=== PATIENT | female | born 1955 | race Caucasian/White ===

== ENCOUNTER 2016-08-16 19:57 | Emergency (ER) | payer MEDICARE ==
[2016-08-16 20:05] VITALS: BP 134/79
--- NOTE | 2016-08-16 20:34 | UC ---
Abdominal Pain Female HPI - HPI Summary HPI Summary: 5.5 x 2.5 inch erythema with 0.5 by 1 inch purulent area with drainage left lower abdomen for 2 days - History of Current Complaint Chief Complaint: UCSkin Stated Complaint: BURST ABCESS ON ABD Time Seen by Provider: 08/16/16 20:30 Hx Obtained From: Patient ?: No Onset/Duration: Sudden Onset, Lasting Days - 2, Still Present Timing: Constant Severity Initially: Moderate Severity Currently: Moderate Pain Intensity: 7 Pain Scale Used: 0-10 Numeric Location: Discrete At: LLQ Radiates: No Character: Not Applicable Aggravating Factor(s): Other: - clothing rubbing on site Alleviating Factor(s): Nothing Associated Signs and Symptoms: Positive: Negative Allergies/Adverse Reactions: Allergies Allergy/AdvReac Type Severity Reaction Status Date / Time Amoxicillin Allergy Intermediate Hives Verified 10/04/14 17:14 Doxycycline Allergy Intermediate Hives Verified 10/04/14 17:14 Erythromycin Allergy Intermediate Hives Verified 10/04/14 17:14 Home Medications: Home Medications Dulaglutide [Trulicity] 0.75 mg SC 08/16/16 [History] Insulin Lispro [Humalog] 10 unit SC DAILY 08/16/16 [History Confirmed 08/16/16] PMH/Surg Hx/FS Hx/Imm Hx Previously Healthy: No Endocrine History: Diabetes, Hypothyroidism Cardiovascular History: Hypertension GI/ History: Gastroesophageal Reflux Psychological History: Depression - Surgical History Surgical History: Yes Surgery Procedure, Year, and Place: 2006 hysterectomy - Family History Known Family History: Positive: Hypertension, Diabetes - late onset - Social History Occupation: Employed Full-time - [employer] Lives: With Family Alcohol Use: Occasionally Substance Use Type: None Smoking Status (MU): Heavy Every Day Tobacco Smoker Type: Cigarettes Amount Used/How Often: 1 ppd Length of Time of Smoking/Using Tobacco: 25 years Have You Smoked in the Last Year: Yes Household Exposure Type: Cigarettes Cessation Counseling: Counseled 3+Min - 10 Min - Immunization History Most Recent Influenza Vaccination: Fall 2014 Most Recent Tetanus Shot: Within last 10 years Most Recent Pneumonia Vaccination: none Review of Systems Constitutional: Negative Skin: Other - cellulitis and open abscess as described Eyes: Negative ENT: Negative Respiratory: Negative Cardiovascular: Negative Gastrointestinal: Negative Genitourinary: Negative Motor: Negative Neurovascular: Negative Musculoskeletal: Negative Neurological: Negative Psychological: Negative All Other Systems Reviewed And Are Negative: Yes Physical Exam Triage Information Reviewed: Yes Appearance: Ill-Appearing, Pain Distress - mild, Obese Vital Signs: Initial Vital Signs Temp 96.8 F 08/16/16 20:00 Pulse 86 08/16/16 20:00 Resp 18 08/16/16 20:00 BP 134/79 08/16/16 20:00 Pulse Ox 98 08/16/16 20:00 Vital Signs Reviewed: Yes Eye Exam: Normal Eyes: Positive: Conjunctiva Clear ENT Exam: Normal ENT: Positive: Normal ENT inspection, Hearing grossly normal, Pharynx normal. Negative: Nasal congestion, Nasal drainage, Tonsillar swelling, Tonsillar exudate, Trismus, Muffled/hoarse voice Dental Exam: Normal Neck exam: Normal Neck: Positive: Supple, Nontender, No Lymphadenopathy Respiratory Exam: Normal Respiratory: Positive: Chest non-tender, Lungs clear, Normal breath sounds, No respiratory distress, No accessory muscle use Cardiovascular Exam: Normal Cardiovascular: Positive: RRR, No Murmur, Pulses Normal, Brisk Capillary Refill Abdominal Exam: Normal Abdomen Description: Positive: No Organomegaly, Soft, Other: - tender at site of cellulitis Bowel Sounds: Positive: Present Musculoskeletal Exam: Normal Musculoskeletal: Positive: Strength Intact, ROM Intact, No Edema Neurological Exam: Normal Neurological: Positive: Alert Psychological Exam: Normal Psychological: Positive: Normal Response To Family Skin Exam: Normal Skin: Positive: Other - cellulitis and abscess as described Abd Pain Female Course/Dx - Course Course Of Treatment: wound culture, bactrim warm soaks, m onitor glucose follow with pcp - Differential Dx/Diagnosis Differential Diagnosis: Other - cellulitis with abscess llside of abdomen Provider Diagnoses: Abscess with cellulitis, left abd wall-Hx diabetic, nicotine dependent Discharge - Discharge Plan Condition: Stable Disposition: HOME Prescriptions: Sulfamethox/Trimethoprim DS* [Bactrim DS 800/160 TAB*] 1 tab PO DAILY #19 tab Patient Education Materials: Abscess (ED), Heat Pack Application (ED) Referrals: Marlon Fletcher MD [Primary Care Provider] - 2 Days
[2016-08-16] MEDS ORDERED: Sulfamethox/Trimethoprim DS 800/160* TAB PO ONE (20:43)
== END 2016-08-16 21:00 | disposition home or self-care (01) ==
LOC: UCEAST 19:57
DX: L02.211 Cutaneous abscess of abdominal wall (principal); L03.311 Cellulitis of abdominal wall; E11.9 Type 2 diabetes mellitus without complications; Z79.4 Long term (current) use of insulin; E03.9 Hypothyroidism, unspecified; I10 Essential (primary) hypertension; K21.9 Gastro-esophageal reflux disease without esophagitis; F32.9 Major depressive disorder, single episode, unspecified; Z90.710 Acquired absence of both cervix and uterus; E66.9 Obesity, unspecified; Z88.1 Allergy status to other antibiotic agents; F17.210 Nicotine dependence, cigarettes, uncomplicated; Z71.6 Tobacco abuse counseling
CPT/HCPCS: 87070; 87205; 87640; 87641; 99212; A9270-GY; G0463

== ENCOUNTER 2017-09-18 21:01 | Observation (INO) | payer MEDICARE ==
[2017-09-18 22:04] LABS: ABS Basophils 0 10^3/ul (0-0.2); ABS Eosinophils 0.3 10^3/ul (0-0.6); ABS Lymphocytes 3.8 10^3/ul (1.0-4.8); ABS Monocytes 0.6 10^3/ul (0-0.8); ABS Neutrophils 8.7 10^3/ul (1.5-7.7); ABS Nucleated RBC 0 10^3/ul; Eosinophil % 2.1 % (0-6); Hematocrit 34 % (35-47); Lymphocyte % 28.5 % (25-47); Mean Corpuscular HGB Conc 35 g/dl (31-36); Mean Corpuscular Hemoglobin 32 pg (27-31); Mean Corpuscular Volume 89 fL (80-97); Mean Platelet Volume 8.3 um3 (7.4-10.4); Nucleated Red Blood Cells % 0.1; Platelet Count 286 10^3/ul (150-450); Red Blood Count 3.82 10^6/ul (4.00-5.40); Red Cell Distribution Width 14 % (10.5-15); White Blood Count 13.4 10^3/ul (3.5-10.8)
[2017-09-18 22:11] LABS: EGFR Non-African American 67.5 (>60)
--- NOTE | 2017-09-18 22:22 | ED ---
Shortness of Breath - HPI Summary HPI Summary: Patient with history of asthma and smoking half a pack a day 35 years complains of increase in chronic exertional SOB 1 week, with random onset sternal and right side chest pressure 2 weeks, and mild cough. CP described as an ache, lasts 2 minutes at a time, occurs about once a day, no radiation. Patient denies orthopnea. Denies fever, sore throat, N/V/D, abdominal pain, change in urine or BM. No prior cardiac history. Medical history is asthma, DM 2, HTN, hypothyroid, bilateral lymphedema. Positive smoker. No anti-coag. Denies history of blood clots, recent surgery or trauma, hemoptysis, estrogen supplements, unilateral leg pain. - History of Current Complaint Chief Complaint: EDShortnessOfBreath Time Seen by Provider: 09/18/17 21:47 Hx Obtained From: Patient Onset/Duration: Gradual Onset Timing: Intermittent Episodes Lasting: Current Severity: Moderate Dyspnea At: Exertion Aggrevating Factors: Movement Associated Signs & Symptoms: Cough (Nonproductive) - Risk Factors Pulmonary Embolism: Smoking Cardiac: Smoking, Diabetes, Hypertension - Allergy/Home Medications Allergies/Adverse Reactions: Allergies Allergy/AdvReac Type Severity Reaction Status Date / Time amoxicillin Allergy Intermediate Hives Verified 09/18/17 21:14 doxycycline Allergy Hives Verified 09/18/17 21:14 erythromycin base Allergy Hives Verified 09/18/17 21:14 PMH/Surg Hx/FS Hx/Imm Hx Endocrine/Hematology History: Reports: Hx Diabetes - type 2 dm, Hx Thyroid Disease Denies: Hx Anticoagulant Therapy, Hx Anemia Cardiovascular History: Reports: Hx Hypertension, Other Cardiovascular Problems/ Disorders Respiratory History: Reports: Hx Asthma, Hx Chronic Bronchitis, Hx Chronic Obstructive Pulmonary Disease (COPD), Hx Sleep Apnea, Other Respiratory Problems /Disorders GI History: Reports: Hx Gastroesophageal Reflux Disease Denies: Hx Hiatal Hernia History: Reports: Other Problems/Disorders - frequent UTIs Sensory History: Reports: Hx Contacts or Glasses, Hx Glaucoma Denies: Hx Cataracts Opthamlomology History: Reports: Hx Contacts or Glasses, Hx Glaucoma Denies: Hx Cataracts Psychiatric History: Reports: Hx Depression - Surgical History Surgery Procedure, Year, and Place: 2005 hysterectomy Infectious Disease History: No Infectious Disease History: Reports: Hx of Known/Suspected MRSA - per pt, at her MD's office Denies: Traveled Outside the [place] in Last 30 Days - Family History Known Family History: Positive: Hypertension, Diabetes - late onset - Social History Alcohol Use: Occasionally Substance Use Type: Reports: None Hx Tobacco Use: Yes Smoking Status (MU): Heavy Every Day Tobacco Smoker Type: Cigarettes Amount Used/How Often: 1 ppd Length of Time of Smoking/Using Tobacco: 25 years Have You Smoked in the Last Year: Yes Review of Systems Constitutional: Negative Eyes: Negative ENT: Negative Positive: Chest Pain Positive: Shortness Of Breath, Cough Gastrointestinal: Negative Genitourinary: Negative Musculoskeletal: Negative Skin: Negative Neurological: Negative Psychological: Normal All Other Systems Reviewed And Are Negative: Yes Physical Exam Triage Information Reviewed: Yes Vital Signs On Initial Exam: Initial Vitals Temp Pulse Resp BP Pulse Ox 97.7 F 82 19 161/84 99 09/18/17 21:05 09/18/17 21:05 09/18/17 21:05 09/18/17 21:05 09/18/17 21:05 Vital Signs Reviewed: Yes Appearance: Positive: Well-Appearing Skin: Positive: Warm Head/Face: Positive: Normal Head/Face Inspection Eyes: Positive: Normal Neck: Positive: Supple Respiratory/Lung Sounds: Positive: Clear to Auscultation Cardiovascular: Positive: Normal Abdomen Description: Positive: Nontender Musculoskeletal: Positive: Normal Neurological: Positive: Normal Diagnostics - Vital Signs Vital Signs Temp Pulse Resp BP Pulse Ox 09/18/17 21:05 97.7 F 82 19 161/84 99 - Laboratory Lab Results: Lab Results 09/18/17 09/18/17 09/18/17 Range/Units 21:34 21:34 21:34 WBC 13.4 H (3.5-10.8) 10^3/ul RBC 3.82 L (4.00-5.40) 10^6/ul Hgb 12.0 (12.0-16.0) g/dl Hct 34 L (35-47) % MCV 89 (80-97) fL MCH 32 H (27-31) pg MCHC 35 (31-36) g/dl RDW 14 (10.5-15) % Plt Count 286 (150-450) 10^3/ul MPV 8.3 (7.4-10.4) um3 Neut % (Auto) 64.7 (38-83) % Lymph % (Auto) 28.5 (25-47) % Craven % (Auto) 4.5 (0-7) % Eos % (Auto) 2.1 (0-6) % Baso % (Auto) 0.2 (0-2) % Absolute Neuts (auto) 8.7 H (1.5-7.7) 10^3/ul Absolute Lymphs (auto) 3.8 (1.0-4.8) 10^3/ul Absolute Monos (auto) 0.6 (0-0.8) 10^3/ul Absolute Eos (auto) 0.3 (0-0.6) 10^3/ul Absolute Basos (auto) 0 (0-0.2) 10^3/ul Absolute Nucleated RBC 0 10^3/ul Nucleated RBC % 0.1 Sodium 137 (135-145) mmol/L Potassium Pending Chloride 102 (101-111) mmol/L Carbon Dioxide 26 (22-32) mmol/L Anion Gap Pending BUN 11 (6-24) mg/dL Creatinine 0.86 (0.51-0.95) mg/dL Est GFR ( Amer) 81.7 (>60) Est GFR (Non-Af Amer) 67.5 (>60) BUN/Creatinine Ratio 12.8 (8-20) Glucose 236 H (70-100) mg/dL Lactic Acid 1.6 (0.5-2.0) mmol/L Calcium 9.2 (8.6-10.3) mg/dL Total Bilirubin 0.30 (0.2-1.0) mg/dL AST Pending ALT 10 (7-52) U/L Alkaline Phosphatase 101 (34-104) U/L Troponin I 0.03 (<0.04) ng/mL C-Reactive Protein 9.31 H (<8.01) mg/L B-Natriuretic Peptide ( - 100) pg/mL Total Protein 7.2 (6.4-8.9) g/dL Albumin 4.0 (3.2-5.2) g/dL Globulin 3.2 (2-4) g/dL Albumin/Globulin Ratio 1.3 (1-3) 09/18/ Range/Units 21:34 WBC (3.5-10.8) 10^3/ul RBC (4.00-5.40) 10^6/ul Hgb (12.0-16.0) g/dl Hct (35-47) % MCV (80-97) fL MCH (27-31) pg MCHC (31-36) g/dl RDW (10.5-15) % Plt Count (150-450) 10^3/ul MPV (7.4-10.4) um3 Neut % (Auto) (38-83) % Lymph % (Auto) (25-47) % Craven % (Auto) (0-7) % Eos % (Auto) (0-6) % Baso % (Auto) (0-2) % Absolute Neuts (auto) (1.5-7.7) 10^3/ul Absolute Lymphs (auto) (1.0-4.8) 10^3/ul Absolute Monos (auto) (0-0.8) 10^3/ul Absolute Eos (auto) (0-0.6) 10^3/ul Absolute Basos (auto) (0-0.2) 10^3/ul Absolute Nucleated RBC 10^3/ul Nucleated RBC % Sodium (135-145) mmol/L Potassium Chloride (101-111) mmol/L Carbon Dioxide (22-32) mmol/L Anion Gap BUN (6-24) mg/dL Creatinine (0.51-0.95) mg/dL Est GFR ( Amer) (>60) Est GFR (Non-Af Amer) (>60) BUN/Creatinine Ratio (8-20) Glucose (70-100) mg/dL Lactic Acid (0.5-2.0) mmol/L Calcium (8.6-10.3) mg/dL Total Bilirubin (0.2-1.0) mg/dL AST ALT (7-52) U/L Alkaline Phosphatase (34-104) U/L Troponin I (<0.04) ng/mL C-Reactive Protein (<8.01) mg/L B-Natriuretic Peptide 87 ( - 100) pg/mL Total Protein (6.4-8.9) g/dL Albumin (3.2-5.2) g/dL Globulin (2-4) g/dL Albumin/Globulin Ratio (1-3) Result Diagrams: 09/18/17 21:34 09/18/17 21:34 Lab Statement: Any lab studies that have been ordered have been reviewed, and results considered in the medical decision making process. - Radiology cxr Xray Interpretation: No Acute Changes Radiology Interpretation Completed By: ED Physician - EKG 1 Cardiac Rate: NL EKG Rhythm: Sinus Rhythm ST Segment: Non-Specific Ectopy: None Course/Dx - Course Course Of Treatment: Patient with history of asthma and smoking half a pack a day 35 years complains of increase in chronic exertional SOB 1 week, with random onset sternal and right side chest pressure 2 weeks, and mild cough. CP described as an ache, lasts 2 minutes at a time, occurs about once a day, no radiation. Patient denies orthopnea. Denies fever, sore throat, N/V/D, abdominal pain, change in urine or BM. No prior cardiac history. Medical history is asthma, DM 2, HTN, hypothyroid, bilateral lymphedema. Positive smoker. No anti-coag. Denies history of blood clots, recent surgery or trauma , hemoptysis, estrogen supplements, unilateral leg pain. PO2 by ABG 47. Labs and imaging unremarkable. Admitted for hypoxia - Diagnoses Provider Diagnoses: Hypoxia Discharge - Sign-Out/Discharge Documenting (check all that apply): Patient Departure - Discharge Plan Condition: Stable Disposition: ADMITTED TO [facility] Referrals: Marlon Fletcher MD [Primary Care Provider] - - Billing Disposition and Condition Condition: STABLE Disposition: Admitted to [facility]
[2017-09-18] MEDS ORDERED: Albuterol/Ipratropium NEB.SOL* Albuterol 2.5 MG/Ipratropium 0.5 MG 3 ML INH ONE (23:48)
[2017-09-19] MEDS ORDERED: predniSONE TAB* 20 MG PO SCH (01:20)
[2017-09-19] MEDS ORDERED: Dextrose 50% Syringe 50 ML* 25 GM/50 ML SYRINGE IV PUSH PRN (01:23)
[2017-09-19] MEDS ORDERED: Levofloxacin TAB* 500 MG PO SCH (02:00)
[2017-09-19] MEDS ORDERED: Albuterol 2.5 MG/3 ML NEB.SOL* (0.083%) INH SCH (03:00)
[2017-09-19] MEDS ORDERED: Albuterol 2.5 MG/3 ML NEB.SOL* (0.083%) INH PRN (03:30)
--- NOTE | 2017-09-19 03:38 | HP ---
CC: Dr. Fletcher.* HISTORY AND PHYSICAL: DATE OF ADMISSION: 09/19/17. PRIMARY CARE PROVIDER: Dr. Fletcher. CHIEF COMPLAINT: Shortness of breath. HISTORY OF PRESENT ILLNESS: Ms. Wolff is a 61-year-old morbidly obese female , who has a history of COPD, ROSANNE, and type 2 diabetes, who presents to the emergency room with complaints of shortness of breath. The patient states that over the last couple of days, she intermittently has been developing sudden onset of severe shortness of breath. This will come on all of a sudden, not necessarily be precipitated by anything. In addition to this, she also states that she is short of breath with minimal exertion, which is abnormal for her. She denies any recent fevers, or chills. No cough, no sputum production, no wheezing. The patient has not been using her rescue inhaler at home as she states it is . She denies any recent long distance travel. She does state that she has chronic lower extremity edema, but it is not any worse than usual. She does state this feels similar to COPD exacerbations that she has had in the past. While in the emergency room, the patient did have one of these episodes of severe shortness of breath and during that period of time an ABG was obtained, which revealed her PaO2 to be 47. The patient does not typically use oxygen at home. The hospitalist services was asked to admit the patient for evaluation of her dyspnea. PAST MEDICAL HISTORY: 1. Type 2 diabetes. 2. Hypothyroidism. 3. ROSANNE utilizing CPAP plus 12. 4. Depression. 5. COPD. 6. Lymphedema. PAST SURGICAL HISTORY: Hysterectomy. MEDICATIONS: 1. Glipizide XL 10 mg p.o. b.i.d. 2. NovoLog 10 units subcutaneous a.c. 3. Latanoprost one drop to both eyes at bedtime. 4. Basaglar 50 units subcutaneous q.h.s. 5. Advair 500/50 one puff inhaled twice daily with Singulair 10 mg p.o. daily. 6. Hydrochlorothiazide 25 mg p.o. daily. 7. Cosopt one drop to both eyes twice daily. 8. Omeprazole 20 mg p.o. b.i.d. 9. Losartan 100 mg p.o. d daily. 10. Levothyroxine 200 mcg p.o. Thursday and Thursday, 400 mcg all other days of the week. 11. Metformin 1500 mg p.o. b.i.d. 12. Bupropion SR 150 mg p.o. b.i.d. 13. Paxil 40 mg p.o. daily. ALLERGIES: AMOXICILLIN, DOXYCYCLINE, and ERYTHROMYCIN. FAMILY HISTORY: Mom at the age of 89. She had aortic stenosis and hypertension. Dad at the age of 78. He had diabetes, hypertension, and dementia. SOCIAL HISTORY: The patient is currently smoking approximately one half pack per day. She smokes for 35 years. At the peak, she smoked one pack per day for 10 to 15 years. She drinks alcohol on occasion. She does receive disability, but she also works at [employer] part-time. She is not . She has no children. She was unable to choose a healthcare proxy at this time. REVIEW OF SYSTEMS: A complete 11 systems review of system was obtained. Pertinent positives and negatives are as per HPI and otherwise negative. PHYSICAL EXAMINATION GENERAL: The patient is a well-developed, middle-aged obese female, seen sitting up in the stretcher, in no acute distress. VITAL SIGNS: Blood pressure 170/90, pulse 87, respirations 14, temp 97.7, O2 sat 94% on 2 L. HEENT: Pupils are equal and round. Extraocular muscles are intact. Oropharynx is clear. Oral mucosa is moist. There is no submandibular, cervical or supraclavicular adenopathy. Thyroid is not enlarged. No thyroid nodules are noted. PULMONARY: Lungs are clear bilaterally, with a few crackles at the right base. CARDIAC: Normal S1, S2. Regular rate and rhythm. I do not appreciate any murmurs. There is marked lower extremity non-pitting edema. ABDOMEN: Bowel sounds are present. Abdomen is obese, soft, nontender, nondistended. MUSCULOSKELETAL: There is no cyanosis or clubbing of the digits. There is full active range of motion of all four extremities. NEUROLOGIC: Cranial nerves II through XII are grossly intact. Sensation is intact to light touch throughout. Strength is 5/5 and symmetric in both upper and lower extremities bilaterally. SKIN: Warm and dry. There are no rashes. PSYCH: The patient is alert. She is oriented x3. Affect appears appropriate. LABORATORY DATA: WBC 13.4, hemoglobin 12.0, hematocrit 34, platelets 286. Sodium 137, potassium 3.8, chloride 102, CO2 26, BUN 11, creatinine 0.86, glucose 236, lactic acid 1.6, calcium 9.2. Bilirubin 0.3, AST 10, ALT 10, alk phos 101. Troponin 0.03, CRP 9.31. BNP 87, albumin 4.0. ABG 7.45/41/47. DIAGNOSTIC DATA: EKG reveals normal sinus rhythm with nonspecific ST-T wave abnormalities. It is relatively unchanged from prior. Chest x-ray to my interpretation appears to be clear with possible small right pleural effusion. ASSESSMENT AND PLAN: Ms. Wolff is a 61-year-old female, who has a history of chronic obstructive pulmonary disease with ongoing tobacco abuse, type 2 diabetes, hypothyroidism, obstructive sleep apnea, and morbid obesity presents to the emergency room with complaints of shortness of breath. 1. Dyspnea. This most likely represents chronic obstructive pulmonary disease exacerbation. However, her symptom is not completely typical. She does not have significant wheezing at this point. However, she did receive a nebulizer treatment in the emergency room. The patient will be admitted and started on prednisone 40 mg daily, but this could be likely rapidly titrated. Additionally , she will continue on standing nebulizer treatments. I will also start Levaquin 500 mg p.o. daily given her allergies to ERYTHROMYCIN and DOXYCYCLINE. The patient does not appear to be in any significant distress at this point. However, I would like to get her up and moving and try to wean her off the oxygen over the next several hours. If the patient improves, she could likely be discharged home later this afternoon. 2. Type 2 diabetes. The patient will continue on an usual home medication regimen. I have ordered glucose checks a.c., h.s. in addition to lispro sliding - scale for additional coverage. 3. Hypothyroidism. We will continue the patient's home dose of Synthroid. 4. Obstructive sleep apnea. We will continue CPAP plus 12. 5. Hypertension. We will continue losartan and hydrochlorothiazide. 6. Depression. Continue Paxil and Wellbutrin. 7. DVT prophylaxis. According to the Adult Thrombosis Prophylaxis Risk Factor Assessment Guide, the patient has a total risk factor score of 4 making her high risk. She will be placed on heparin 5000 units subcutaneous q.8 hours. 8. Code status is full. TIME SPENT: 65 minutes were spent admitting this patient, of which greater than half was spent [id number] with the patient reviewing her history and performing the physical examination. [id number]/[facility] #: [id number] ALMITA
[2017-09-19] MEDS: Heparin VIAL(*) 5000 UNITS/ML VIAL (FIVE THOUSAND) SUBCUT SCH ×2 (05:51→14:28)
[2017-09-19] MEDS ORDERED: Levothyroxine TAB* 100 MCG TAB PO SCH (06:00)
--- NOTE | 2017-09-19 08:20 | RAD ---
INDICATION: RIGHT side chest pain and shortness of breath over the past week with exertion. COMPARISON: December 24, 2015 TECHNIQUE: Dual energy PA and routine lateral views of the chest were obtained. REPORT: Diffuse mild to moderate prominence of the interstitial markings. Bilateral small dependent pleural effusions with minimal atelectasis. Negative for pneumothorax. Negative for cardiomegaly. Unremarkable central pulmonary vasculature and mediastinal contours. IMPRESSION: #. Small bilateral pleural effusions. #. Nonfocal mild to moderate prominence of interstitial markings. Consider potential bronchopneumonia. R2
[2017-09-19] MEDS: Insulin LISPRO* 1 UNITS UNIT SUBCUT SCH ×4 (08:49→12:48)
[2017-09-19] MEDS ORDERED: PARoxetine HCL TAB* 40 MG PO SCH (09:00)
[2017-09-19] MEDS ORDERED: Dorzolamide/Timolol OPTH (NF) 10 ML BOT BOTH EYES SCH (09:00)
[2017-09-19] MEDS ORDERED: Omeprazole CAP* 20 MG PO SCH (09:00)
[2017-09-19] MEDS ORDERED: Mometasone/Formoter 200/5 MDI INH SCH (09:00)
[2017-09-19] MEDS ORDERED: buPROPion SR TAB.SR* 150 MG PO SCH (09:00)
[2017-09-19] MEDS ORDERED: Hydrochlorothiazide TAB* 25 MG PO SCH (09:00)
[2017-09-19] MEDS ORDERED: Losartan TAB* 25 MG PO SCH (09:00)
[2017-09-19] MEDS ORDERED: Pneumococcal *Vac Polyvalent 0.5 ML VIAL IM ONE (09:00)
[2017-09-19] MEDS ORDERED: glipiZIDE TAB.XL* 5 MG PO SCH (09:00)
[2017-09-19] MEDS ORDERED: Insulin GLARGINE(*) 1 UNITS UNIT SUBCUT ONE (10:49)
[2017-09-19] MEDS ORDERED: amLODIPine TAB* 5 MG PO ONE (10:55)
[2017-09-19 11:21] VITALS: BP 167/72
--- NOTE | 2017-09-19 15:06 | DS ---
CC: Dr. Fletcher * DISCHARGE SUMMARY: DATE OF ADMISSION: 09/19/17 DATE OF DISCHARGE: 09/19/17 PRIMARY CARE PROVIDER: Dr. Fletcher. DISCHARGE DIAGNOSIS: Chronic obstructive pulmonary disease exacerbation. MEDICATIONS AT DISCHARGE: Include: 1. Wellbutrin SR 150 mg b.i.d. 2. Timolol eye drops 1 drop both eyes daily. 3. Glipizide XL 10 mg b.i.d. 4. Hydrochlorothiazide 25 mg daily. 5. Insulin NovoLog 10 units 3 times a day with meals. 6. Insulin glargine. The patient is instructed to use at least 60 units of insulin glargine subcutaneously daily when on steroids. Later on after she is off prednisone, she can drop it down to 50 units a day what she had been using. 7. Xalatan eye drops 0.005% one drop both eyes daily. 8. Synthroid 200 mcg on Sundays and Mondays and 400 mcg on Tuesdays, Wednesdays , , Fridays, and Saturdays. 9. Cozaar 100 mg daily. 10. Metformin 1500 mg at bedtime. 11. Singulair 10 mg daily. 12. Omeprazole 20 mg b.i.d. 13. Paxil 40 mg daily. 14. Albuterol inhaler 1 puff every 4 hours p.r.n. 15. DuoNeb 1 every 4 hours p.r.n. wheezing, do not use when using albuterol inhaler at the same time. 16. Prednisone 40 mg daily for 5 days. 17. Levofloxacin 500 mg daily for 6 days total. 18. Advair 500/50 one inhalation b.i.d. LABORATORY DATA PERFORMED DURING THE HOSPITAL STAY: Included in addition to the ones dictated by Dr. Douglas in her history and physical, the patient had a procalcitonin level obtained, which was below 0.1. The patient's chest x-ray was read officially by the radiologist as "small bilateral pleural effusions. Nonfocal [id number] prominence of interstitial markings. Consider potential bronchopneumonia." HOSPITALIZATION COURSE: Liz Wolff is a 61-year-old female who was admitted early in the morning on 09/19/17 with COPD exacerbation. By the time of discharge, she is no longer wheezing. She was placed on steroids and Levaquin for COPD exacerbation, which is going to be continued at discharge. I educated the patient that during her treatment with steroids, her sugars are going to be uncontrolled and to increase her Lantus dose to 60 units daily. The patient may need to increase her NovoLog likely to 15 units with each meal. That should be reduced back to her home dose after the prednisone treatment is completed. She is recommended to follow up with her primary care provider in approximately 4 to 7 days. PHYSICAL EXAM AT THE TIME OF DISCHARGE: Blood pressure of 163/74, heart rate of 83 and regular, respiratory rate 15, oxygen saturation 98% on room air, temperature of 97.6. General: The patient is a very pleasant 61-year-old female, who is in no acute distress. Alert, awake, and oriented x3. HEENT: Head: Atraumatic, normocephalic. Eyes: Pupils are equal, reactive to light and accommodation. Oropharynx is clear. Mucosa moist. Neck: Supple. No JVD. No bruits bilaterally. Cardiovascular: Regular rate and rhythm. No murmur. Respiratory: Mildly coarse breath sounds in bilateral bases, otherwise clear. Abdomen: Soft, nontender. Bowel sounds are present in all 4 quadrants. Extremities: There is bilateral lymphedema present, which is her baseline. Neuro Evaluation: Speech is clear. Cranial nerves II through XII are grossly intact. Motor strength is 5/5 bilaterally. Please note that the patient's blood pressure had been elevated throughout her hospital stay and she is going to be started on Norvasc at 5 mg daily in addition to the above-mentioned medications. This is a short summary of the patient's hospitalization. Please refer to further medical records for details. TIME SPENT: Approximately 45 minutes were spent on the patient's discharge. [id number]/[facility] #: [id number] ALMITA
[2017-09-19] MEDS ORDERED: Montelukast Sodium TAB* 10 MG PO SCH (21:00)
[2017-09-19] MEDS ORDERED: Insulin GLARGINE(*) 1 UNITS UNIT SUBCUT SCH (21:00)
[2017-09-19] MEDS ORDERED: metFORMIN* 500 MG TAB PO SCH (21:00)
[2017-09-19] MEDS ORDERED: Latanoprost 0.005%* 2.5 ml BTL BOTH EYES SCH (21:00)
[2017-09-20] MEDS ORDERED: Levothyroxine TAB* 100 MCG TAB PO SCH (06:00)
== END 2017-09-19 14:15 | disposition home or self-care (01) ==
LOC: ED 21:01 → SSU 09-19 01:19
PROVIDERS: ADMIT Hospitalist; ATTEND Internal Medicine
DX: J44.1 Chronic obstructive pulmonary disease with (acute) exacerbation (principal); R06.00 Dyspnea, unspecified; E11.9 Type 2 diabetes mellitus without complications; E03.9 Hypothyroidism, unspecified; G47.33 Obstructive sleep apnea (adult) (pediatric); F32.9 Major depressive disorder, single episode, unspecified; I89.0 Lymphedema, not elsewhere classified; Z88.0 Allergy status to penicillin; F17.210 Nicotine dependence, cigarettes, uncomplicated
CPT/HCPCS: 36415; 71046; 80053; 82803; 83605; 83880; 84145; 84484; 85025; 86140; 87040; 90732; 93005; 94640; 94660; 99284; A9270-GY; G0378; J1644; J7512

== ENCOUNTER 2017-12-04 13:40 | Emergency (ER) | payer MEDICARE ==
[2017-12-04 14:38] LABS: ABS Basophils 0.1 10^3/ul (0-0.2); ABS Eosinophils 0.2 10^3/ul (0-0.6); ABS Lymphocytes 2.5 10^3/ul (1.0-4.8); ABS Monocytes 0.7 10^3/ul (0-0.8); ABS Neutrophils 7.6 10^3/ul (1.5-7.7); ABS Nucleated RBC 0 10^3/ul; Eosinophil % 2.2 % (0-6); Hematocrit 39 % (35-47); Hemoglobin 13.3 g/dl (12.0-16.0); Lymphocyte % 22.5 % (25-47); Mean Corpuscular HGB Conc 35 g/dl (31-36); Mean Corpuscular Hemoglobin 31 pg (27-31); Mean Corpuscular Volume 89 fL (80-97); Mean Platelet Volume 7.2 um3 (7.4-10.4); Nucleated Red Blood Cells % 0.1; Platelet Count 243 10^3/ul (150-450); Red Blood Count 4.31 10^6/ul (4.00-5.40); Red Cell Distribution Width 14 % (10.5-15); White Blood Count 11.2 10^3/ul (3.5-10.8)
--- NOTE | 2017-12-04 15:27 | RAD ---
INDICATION: Increased shortness of breath. Cough yesterday and congestion today. COMPARISON: September 18, 2017 TECHNIQUE: Dual energy PA and routine lateral views of the chest were obtained. REPORT: Elevated lung volumes and mild chronic prominence of interstitial markings. Negative for pleural effusion or pneumothorax. Mild cardiomegaly. Prominent mildly ill-defined central pulmonary vasculature with cephalization. IMPRESSION: #. Stigmata of chronic obstructive pulmonary disease and pulmonary vascular congestion.
--- NOTE | 2017-12-04 18:31 | ED ---
Shortness of Breath - HPI Summary HPI Summary: Patient is a 62 y/o F w/ c/o cough, congestion, and sore throat onsetting yesterday. She also reports SOB onsetting last night. Sore throat is aggravated by cough. Fever is denied, cough is not productive. On triage, pain is rated 0/ 10, mucinex and OTC cough medication are noted to provide minimal relief to Sx. Sx are aggravated by movement. PMHx of lymphedema, diabetes, and COPD. She states she does not have insulin as she "can't afford it". Patient does not currently take diuretics. She states she has an inhaler. Home medications and allergies are reviewed. - History of Current Complaint Chief Complaint: EDShortnessOfBreath Time Seen by Provider: 12/04/17 18:20 Hx Obtained From: Patient Onset/Duration: Lasting Days - onset yesterday, Still Present Timing: Constant Current Severity: None Aggrevating Factors: Movement, Other - cough aggravates sore throat Alleviating Factors: OTC Meds, Other - mucinex Associated Signs & Symptoms: Cough (Nonproductive), Nasal Congestion - Allergy/Home Medications Allergies/Adverse Reactions: Allergies Allergy/AdvReac Type Severity Reaction Status Date / Time amoxicillin Allergy Intermediate Hives Verified 09/18/17 21:14 doxycycline Allergy Hives Verified 09/18/17 21:14 erythromycin base Allergy Hives Verified 09/18/17 21:14 PMH/Surg Hx/FS Hx/Imm Hx Endocrine/Hematology History: Reports: Hx Diabetes, Hx Thyroid Disease Denies: Hx Anticoagulant Therapy, Hx Anemia Cardiovascular History: Reports: Hx Hypertension, Other Cardiovascular Problems/ Disorders Respiratory History: Reports: Hx Asthma, Hx Chronic Bronchitis, Hx Chronic Obstructive Pulmonary Disease (COPD), Hx Seasonal Allergies, Hx Sleep Apnea, Other Respiratory Problems/Disorders Denies: Hx Pneumonia GI History: Reports: Hx Gastroesophageal Reflux Disease Denies: Hx Hiatal Hernia History: Reports: Other Problems/Disorders - frequent UTIs Sensory History: Reports: Hx Contacts or Glasses, Hx Glaucoma Denies: Hx Cataracts, Hx Deafness, Hx Hearing Aid Opthamlomology History: Reports: Hx Contacts or Glasses, Hx Glaucoma Denies: Hx Cataracts Psychiatric History: Reports: Hx Depression - Surgical History Surgery Procedure, Year, and Place: 2005 hysterectomy Hx Anesthesia Reactions: No Infectious Disease History: No Infectious Disease History: Reports: Hx of Known/Suspected MRSA - per pt, at her MD's office Denies: Hx Shingles, Traveled Outside the [place] in Last 30 Days - Family History Known Family History: Positive: Hypertension, Diabetes - late onset - Social History Alcohol Use: Rare Substance Use Type: Reports: None Hx Tobacco Use: Yes Smoking Status (MU): Heavy Every Day Tobacco Smoker Type: Cigarettes Amount Used/How Often: 1/2 ppd Length of Time of Smoking/Using Tobacco: 25 years Have You Smoked in the Last Year: Yes Review of Systems Negative: Fever Positive: Sore Throat, Other - congestion Positive: Shortness Of Breath, Cough - nonproductive All Other Systems Reviewed And Are Negative: Yes Physical Exam - Summary Physical Exam Summary: Appearance: The patient is well-nourished in no acute distress and in no acute pain. Skin: The skin is warm and dry and skin color reflects adequate perfusion. HEENT: The head is normocephalic and atraumatic. The pupils are equal and reactive. The conjunctivae are clear and without drainage. Nares are patent and without drainage. Mouth reveals moist mucous membranes and the throat is without erythema and exudate. The external ears are intact. The ear canals are patent and without drainage. The tympanic membranes are intact. Neck: The neck is supple with full range of motion and non-tender. There are no carotid bruits. There is no neck vein distension. Respiratory: Chest is non-tender. Wet cough is noted and patient sounds congested. However, lungs are clear to auscultation otherwise and breath sounds are symmetrical and equal. Cardiovascular: Heart is regular rate and rhythm. There is no murmur or rub auscultated. There is no peripheral edema and pulses are symmetrical and equal. Abdomen: The abdomen is soft and non-tender. There are normal bowel sounds heard in all four quadrants and there is no organomegaly palpated. Musculoskeletal: There is no back tenderness noted. Extremities are non-tender with full range of motion. There is good capillary refill. There is no peripheral edema or calf tenderness elicited. Neurological: Patient is alert and oriented to person, place and time. The patient has symmetrical motor strength in all four extremities. Cranial nerves are grossly intact. Deep tendon reflexes are symmetrical and equal in all four extremities. Psychiatric: The patient has an appropriate affect and does not exhibit any anxiety or depression. Triage Information Reviewed: Yes Vital Signs On Initial Exam: Initial Vitals Temp Pulse Resp BP Pulse Ox 96.7 F 83 20 180/90 92 12/04/17 13:42 12/04/17 13:42 12/04/17 13:42 12/04/17 13:42 12/04/17 13:42 Vital Signs Reviewed: Yes Diagnostics - Vital Signs Vital Signs Temp Pulse Resp BP Pulse Ox 12/04/17 13:42 96.7 F 83 20 180/90 92 - Laboratory Lab Results: Lab Results 12/04/17 12/04/17 12/04/17 Range/Units 14:28 14:28 14:28 WBC 11.2 H (3.5-10.8) 10^3/ul RBC 4.31 (4.00-5.40) 10^6/ul Hgb 13.3 (12.0-16.0) g/dl Hct 39 (35-47) % MCV 89 (80-97) fL MCH 31 (27-31) pg MCHC 35 (31-36) g/dl RDW 14 (10.5-15) % Plt Count 243 (150-450) 10^3/ul MPV 7.2 L (7.4-10.4) um3 Neut % (Auto) 68.4 (38-83) % Lymph % (Auto) 22.5 L (25-47) % [place] % (Auto) 6.1 (0-7) % Eos % (Auto) 2.2 (0-6) % Baso % (Auto) 0.8 (0-2) % Absolute Neuts (auto) 7.6 (1.5-7.7) 10^3/ul Absolute Lymphs (auto) 2.5 (1.0-4.8) 10^3/ul Absolute Monos (auto) 0.7 (0-0.8) 10^3/ul Absolute Eos (auto) 0.2 (0-0.6) 10^3/ul Absolute Basos (auto) 0.1 (0-0.2) 10^3/ul Absolute Nucleated RBC 0 10^3/ul Nucleated RBC % 0.1 Sodium 135 (135-145) mmol/L Potassium 3.6 (3.5-5.0) mmol/L Chloride 98 L (101-111) mmol/L Carbon Dioxide 30 (22-32) mmol/L Anion Gap 7 (2-11) mmol/L BUN 8 (6-24) mg/dL Creatinine 0.59 (0.51-0.95) mg/dL Est GFR ( Amer) 125.8 (>60) Est GFR (Non-Af Amer) 104.0 (>60) BUN/Creatinine Ratio 13.6 (8-20) Glucose 331 H (70-100) mg/dL Lactic Acid 1.2 (0.5-2.0) mmol/L Calcium 9.0 (8.6-10.3) mg/dL Total Bilirubin 0.70 (0.2-1.0) mg/dL AST 11 L (13-39) U/L ALT 10 (7-52) U/L Alkaline Phosphatase 95 (34-104) U/L Troponin I 0.02 (<0.04) ng/mL Total Protein 6.7 (6.4-8.9) g/dL Albumin 3.8 (3.2-5.2) g/dL Globulin 2.9 (2-4) g/dL Albumin/Globulin Ratio 1.3 (1-3) Result Diagrams: 12/04/17 14:28 12/04/17 14:28 Lab Statement: Any lab studies that have been ordered have been reviewed, and results considered in the medical decision making process. - Radiology CXR Xray Interpretation: No Acute Changes Radiology Interpretation Completed By: Radiologist - stigmata of chronic obstructive pulmonary disease and pulmonary vascular congestion; this report was reviewed by ed physician. - EKG 1339 Cardiac Rate: NL - rate of 80 BPM EKG Rhythm: Sinus Rhythm ST Segment: Normal Ectopy: None EKG Interpretation: no STEMI Re-Evaluation - Re-Evaluation First Eval Re-Evaluation Time: 20:30 Comment: Discussed results of labs and tests with patient. She will be discharged to home and is instructed to follow up with PCP in 1-2 days. Patient understands and is agreeable with this plan. Course/Dx - Course Course Of Treatment: Ms. Wolff presented with about 1 day of shortness of breath and paroxysmal coughing. She's not aware of any fevers. Her lungs sounded clear to me and she was not clinically in failure. Her chest x-ray did show some evidence for COPD as well as CHF. Her BNP was slightly elevated at 159 the last time was checked was 87. Here she received guaifenesin with codeine while her workup was occurring and she felt much improved. I'm going to treat her symptomatically with that as well as antibiotics and encourage close follow-up. - Diagnoses Provider Diagnoses: Acute bronchitis, COPD (chronic obstructive pulmonary disease) Discharge - Sign-Out/Discharge Documenting (check all that apply): Patient Departure - discharge - Discharge Plan Condition: Stable Disposition: HOME Prescriptions: Codeine Phosphate/Guaifenesin [Guaifen-Codeine 100-10 mg/5 ml] 5 ml PO Q4HR PRN #100 ml MDD 30 cc PRN Reason: Cough Sulfamethox/Trimethoprim DS* [Bactrim DS 800/160 TAB*] 1 tab PO BID #20 tab Patient Education Materials: Acute Bronchitis (ED), COPD (Chronic Obstructive Pulmonary Disease) (ED) Referrals: Marlon Fletcher MD [Primary Care Provider] - 2 Days Additional Instructions: RETURN TO ED FOR ANY NEW OR WORSENING SYMPTOMS. FOLLOW UP WITH PRIMARY CARE PHYSICIAN IN 1-2 DAYS. - Billing Disposition and Condition Condition: STABLE Disposition: Home - Attestation Statements Document Initiated by Scribe: Yes Documenting Scribe: Sal Banks Provider For Whom Scribe is Documenting (Include Credential): Lawrence Pierce MD Scribe Attestation: ISal , scribed for Lawrence Pierce MD on 12/04/17 at 2118. Scribe Documentation Reviewed: Yes Provider Attestation: The documentation as recorded by the Sal kapoor accurately reflects the service I personally performed and the decisions made by me, Lawrence Pierce MD
[2017-12-04] MEDS ORDERED: guaiFENesin/CODIEN 100MG-10MG* 5 ML UDC PO ONE (19:01)
[2017-12-04 20:51] VITALS: BP 180/98
== END 2017-12-04 20:52 | disposition home or self-care (01) ==
LOC: ED 13:40
DX: J20.9 Acute bronchitis, unspecified (principal); J44.9 Chronic obstructive pulmonary disease, unspecified; R05 Cough; J02.9 Acute pharyngitis, unspecified; R06.02 Shortness of breath; F17.210 Nicotine dependence, cigarettes, uncomplicated
CPT/HCPCS: 36415; 71046; 80053; 83605; 83880; 84484; 85025; 93005; 99283; A9270-GY

== ENCOUNTER 2018-02-24 18:27 | Inpatient (IN) | payer MEDICARE ==
[2018-02-24] MEDS ORDERED: Ibuprofen TAB* 600 MG PO ONE (19:13)
[2018-02-24] MEDS ORDERED: NS 0.9% 1000 ML* 1,000 ML IV ONE (19:13)
[2018-02-24 19:46] LABS: ABS Basophils 0 10^3/ul (0-0.2); ABS Eosinophils 0.1 10^3/ul (0-0.6); ABS Lymphocytes 1.2 10^3/ul (1.0-4.8); ABS Monocytes 0.7 10^3/ul (0-0.8); ABS Neutrophils 5.8 10^3/ul (1.5-7.7); ABS Nucleated RBC 0 10^3/ul; Eosinophil % 0.9 %; Hematocrit 35 % (35-47); Hemoglobin 11.8 g/dl (12.0-16.0); Lymphocyte % 15.5 %; Mean Corpuscular HGB Conc 34 g/dl (31-36); Mean Corpuscular Hemoglobin 30 pg (27-31); Mean Corpuscular Volume 89 fL (80-97); Mean Platelet Volume 7.5 fL (7.4-10.4); Nucleated Red Blood Cells % 0.1; Platelet Count 266 10^3/ul (150-450); Red Blood Count 3.93 10^6/ul (4.00-5.40); Red Cell Distribution Width 13 % (10.5-15); White Blood Count 7.8 10^3/ul (3.5-10.8)
[2018-02-24 20:02] LABS: Albumin 3.9 g/dL (3.2-5.2); Albumin/Globulin Ratio 1.3 (1-3); BUN/Creatinine Ratio 11.8 (8-20); C Reactive Protein 16.24 mg/L (<8.01); Calcium 9.2 mg/dL (8.6-10.3); EGFR Non-African American 88.3 (>60); Globulin 3.1 g/dL (2-4); Potassium 3.4 mmol/L (3.5-5.0); Total Bilirubin 0.4 mg/dL (0.2-1.0)
[2018-02-24 20:29] LABS: TSH (Thyroid Stimulating Horm) 0.3 mcIU/mL (0.34-5.60)
[2018-02-24] MEDS ORDERED: Oseltamivir CAP* 75 MG CAP PO ONE (20:37)
--- NOTE | 2018-02-24 21:02 | ED ---
Influenza-Like Illness - HPI Summary HPI Summary: Patient complains of flulike symptoms 3 days, including dry cough, body aches, fever, STARKS, SOB. Denies sore throat, neck stiffness, CP V, N/V/D, abdominal pain , change in urine, change in BM, rash. Medical history is DM, HTN, hypothyroid , COPD. Positive smoker. No home oxygen. - History of Current Complaint Chief Complaint: EDFluSymptoms Time Seen by Provider: 02/24/18 19:01 Hx Obtained From: Patient Onset/Duration: Gradual Onset Severity: Moderate Associated Signs & Symptoms: Fever, Myalgia, Cough, Headache - Allergy/Home Medications Allergies/Adverse Reactions: Allergies Allergy/AdvReac Type Severity Reaction Status Date / Time amoxicillin Allergy Intermediate Hives Verified 09/18/17 21:14 doxycycline Allergy Hives Verified 09/18/17 21:14 erythromycin base Allergy Hives Verified 09/18/17 21:14 Home Medications: Home Medications Insulin Glargine,Hum.rec.anlog [Lucille Mendoza] 50 unit SQ DAILY 02/24/18 [ History Confirmed 02/24/18] PMH/Surg Hx/FS Hx/Imm Hx Endocrine/Hematology History: Reports: Hx Diabetes, Hx Thyroid Disease Denies: Hx Anticoagulant Therapy, Hx Anemia Cardiovascular History: Reports: Hx Hypertension, Other Cardiovascular Problems/ Disorders Respiratory History: Reports: Hx Asthma, Hx Chronic Bronchitis, Hx Chronic Obstructive Pulmonary Disease (COPD), Hx Seasonal Allergies, Hx Sleep Apnea, Other Respiratory Problems/Disorders Denies: Hx Pneumonia GI History: Reports: Hx Gastroesophageal Reflux Disease Denies: Hx Hiatal Hernia History: Reports: Other Problems/Disorders - frequent UTIs Sensory History: Reports: Hx Contacts or Glasses, Hx Glaucoma Denies: Hx Cataracts, Hx Deafness, Hx Hearing Aid Opthamlomology History: Reports: Hx Contacts or Glasses, Hx Glaucoma Denies: Hx Cataracts Psychiatric History: Reports: Hx Depression - Surgical History Surgery Procedure, Year, and Place: 2005 hysterectomy Hx Anesthesia Reactions: No - Immunization History Date of Influenza Vaccine: 2017 Infectious Disease History: No Infectious Disease History: Reports: Hx of Known/Suspected MRSA - per pt, at her MD's office Denies: Hx Shingles, Traveled Outside the [place] in Last 30 Days - Family History Known Family History: Positive: Hypertension, Diabetes - late onset - Social History Alcohol Use: Rare Substance Use Type: Reports: None Hx Tobacco Use: Yes Smoking Status (MU): Heavy Every Day Tobacco Smoker Type: Cigarettes Amount Used/How Often: 1/2 ppd Length of Time of Smoking/Using Tobacco: 25 years Have You Smoked in the Last Year: Yes Review of Systems Positive: Fever Eyes: Negative ENT: Negative Cardiovascular: Negative Positive: Shortness Of Breath, Cough Gastrointestinal: Negative Genitourinary: Negative Positive: Myalgia Skin: Negative Positive: Headache Psychological: Normal All Other Systems Reviewed And Are Negative: Yes Physical Exam - Summary Physical Exam Summary: Lung sounds diminished bilaterally. No wheezing, rhonchi or rales noted. Abdomen soft nontender. Pharyngeal erythema. Physical exam otherwise unremarkable. Neck supple. Triage Information Reviewed: Yes Vital Signs On Initial Exam: Initial Vitals Temp Pulse Resp BP Pulse Ox 102.6 F 95 20 179/85 96 02/24/18 18:31 02/24/18 18:31 02/24/18 18:31 02/24/18 18:31 02/24/18 18:31 Vital Signs Reviewed: Yes Appearance: Positive: Well-Appearing Skin: Positive: Warm Head/Face: Positive: Normal Head/Face Inspection Eyes: Positive: Normal ENT: Positive: Pharyngeal erythema Neck: Positive: Supple Respiratory/Lung Sounds: Positive: Breath Sounds Present, Decreased Breath Sounds. Negative: Rales, Rhonchi, Stridor, Wheezes Cardiovascular: Positive: Normal Abdomen Description: Positive: Nontender Musculoskeletal: Positive: Normal Neurological: Positive: Normal Psychiatric: Positive: Normal AVPU Assessment: Alert - Cameron Coma Scale Best Eye Response: 4 - Spontaneous Best Motor Response: 6 - Obeys Commands Best Verbal Response: 5 - Oriented Coma Scale Total: 15 Diagnostics - Vital Signs Vital Signs Temp Pulse Resp BP Pulse Ox 02/24/18 20:52 97 26 176/102 90 02/24/18 20:50 99.8 F 02/24/18 20:22 97 27 164/120 86 02/24/18 20:00 103 29 86 02/24/18 19:51 102 169/108 89 02/24/18 19:50 100 93 02/24/18 18:31 102.6 F 95 20 179/85 96 - Laboratory Lab Results: Lab Results 02/24/18 02/24/18 02/24/18 Range/Units 19:33 19:33 19:33 WBC 7.8 (3.5-10.8) 10^3/ul RBC 3.93 L (4.00-5.40) 10^6/ul Hgb 11.8 L (12.0-16.0) g/dl Hct 35 (35-47) % MCV 89 (80-97) fL MCH 30 (27-31) pg MCHC 34 (31-36) g/dl RDW 13 (10.5-15) % Plt Count 266 (150-450) 10^3/ul MPV 7.5 (7.4-10.4) fL Neut % (Auto) 74.1 % Lymph % (Auto) 15.5 % Day % (Auto) 8.9 % Eos % (Auto) 0.9 % Baso % (Auto) 0.6 % Absolute Neuts (auto) 5.8 (1.5-7.7) 10^3/ul Absolute Lymphs (auto) 1.2 (1.0-4.8) 10^3/ul Absolute Monos (auto) 0.7 (0-0.8) 10^3/ul Absolute Eos (auto) 0.1 (0-0.6) 10^3/ul Absolute Basos (auto) 0 (0-0.2) 10^3/ul Absolute Nucleated RBC 0 10^3/ul Nucleated RBC % 0.1 ABG pH (7.35-7.45) ABG pCO2 (35-45) mmHg ABG pO2 (80-100) mmHg ABG HCO3 (19-31) mmol/L ABG O2 Saturation (94.0-98.0) % ABG Base Excess (-2.0-2.0) mmol/L Sodium 137 (135-145) mmol/L Potassium 3.4 L (3.5-5.0) mmol/L Chloride 99 L (101-111) mmol/L Carbon Dioxide 30 (22-32) mmol/L Anion Gap 8 (2-11) mmol/L BUN 8 (6-24) mg/dL Creatinine 0.68 (0.51-0.95) mg/dL Est GFR ( Amer) 106.8 (>60) Est GFR (Non-Af Amer) 88.3 (>60) BUN/Creatinine Ratio 11.8 (8-20) Glucose 95 (70-100) mg/dL Lactic Acid 1.0 (0.5-2.0) mmol/L Calcium 9.2 (8.6-10.3) mg/dL Total Bilirubin 0.40 (0.2-1.0) mg/dL AST 16 (13-39) U/L ALT 13 (7-52) U/L Alkaline Phosphatase 80 (34-104) U/L C-Reactive Protein 16.24 H (<8.01) mg/L Total Protein 7.0 (6.4-8.9) g/dL Albumin 3.9 (3.2-5.2) g/dL Globulin 3.1 (2-4) g/dL Albumin/Globulin Ratio 1.3 (1-3) TSH 0.30 L (0.34-5.60) mcIU/mL Influenza B (Rapid) (Negative) 02/24/18 02/24/18 Range/Units 20:09 20:24 WBC (3.5-10.8) 10^3/ul RBC (4.00-5.40) 10^6/ul Hgb (12.0-16.0) g/dl Hct (35-47) % MCV (80-97) fL MCH (27-31) pg MCHC (31-36) g/dl RDW (10.5-15) % Plt Count (150-450) 10^3/ul MPV (7.4-10.4) fL Neut % (Auto) % Lymph % (Auto) % Day % (Auto) % Eos % (Auto) % Baso % (Auto) % Absolute Neuts (auto) (1.5-7.7) 10^3/ul Absolute Lymphs (auto) (1.0-4.8) 10^3/ul Absolute Monos (auto) (0-0.8) 10^3/ul Absolute Eos (auto) (0-0.6) 10^3/ul Absolute Basos (auto) (0-0.2) 10^3/ul Absolute Nucleated RBC 10^3/ul Nucleated RBC % ABG pH 7.49 H (7.35-7.45) ABG pCO2 38 (35-45) mmHg ABG pO2 51 L* (80-100) mmHg ABG HCO3 28.7 (19-31) mmol/L ABG O2 Saturation 86.2 L (94.0-98.0) % ABG Base Excess 5.4 H (-2.0-2.0) mmol/L Sodium (135-145) mmol/L Potassium (3.5-5.0) mmol/L Chloride (101-111) mmol/L Carbon Dioxide (22-32) mmol/L Anion Gap (2-11) mmol/L BUN (6-24) mg/dL Creatinine (0.51-0.95) mg/dL Est GFR ( Amer) (>60) Est GFR (Non-Af Amer) (>60) BUN/Creatinine Ratio (8-20) Glucose (70-100) mg/dL Lactic Acid (0.5-2.0) mmol/L Calcium (8.6-10.3) mg/dL Total Bilirubin (0.2-1.0) mg/dL AST (13-39) U/L ALT (7-52) U/L Alkaline Phosphatase (34-104) U/L C-Reactive Protein (<8.01) mg/L Total Protein (6.4-8.9) g/dL Albumin (3.2-5.2) g/dL Globulin (2-4) g/dL Albumin/Globulin Ratio (1-3) TSH (0.34-5.60) mcIU/mL Influenza B (Rapid) Positive A (Negative) Result Diagrams: 02/24/18 19:33 02/24/18 19:33 Lab Statement: Any lab studies that have been ordered have been reviewed, and results considered in the medical decision making process. Flu Symptom Course/Dx - Course Course Of Treatment: Patient complains of flulike symptoms 3 days, including dry cough, body aches, fever, STARKS, SOB. Denies sore throat, neck stiffness, CP V , N/V/D, abdominal pain, change in urine, change in BM, rash. Medical history is DM, HTN, hypothyroid, COPD. Positive smoker. No home oxygen. Physical exam :Lung sounds diminished bilaterally. No wheezing, rhonchi or rales noted. Abdomen soft nontender. Pharyngeal erythema. Physical exam otherwise unremarkable. Neck supple. Temperature 102.8. Mildly tachycardic. O2 sats in mid 80s. Labs unremarkable. Chest x-ray Positive for flu A. PO2 on ABG 51. - Diagnoses Provider Diagnoses: Hypoxia, Influenza A Discharge - Sign-Out/Discharge Documenting (check all that apply): Patient Departure - Discharge Plan Condition: Stable Disposition: ADMITTED TO [facility] - Billing Disposition and Condition Condition: STABLE Disposition: Admitted to [facility]
[2018-02-24] MEDS ORDERED: Albuterol HFA INHALER* 8 gm MDI INH PRN (22:22)
[2018-02-24] MEDS ORDERED: Dextrose 50% Syringe 50 ML* 25 GM/50 ML SYRINGE IV PUSH PRN (22:22)
[2018-02-24] MEDS ORDERED: Albuterol/Ipratropium NEB.SOL* Albuterol 2.5 MG/Ipratropium 0.5 MG 3 ML INH PRN (22:22)
[2018-02-24] MEDS ORDERED: Ondansetron INJ* 2 MG/ML VIAL IV PRN (22:25)
[2018-02-24] MEDS ORDERED: Acetaminophen TAB* 325 MG PO PRN (22:25)
[2018-02-24] MEDS ORDERED: Nicotine Inhaler* 10 MG AMP INH PRN (22:34)
[2018-02-24] MEDS ORDERED: Nicotine GUM* 2 MG PO PRN (22:34)
[2018-02-24] MEDS ORDERED: Iodixanol 320 (CONTRAST) 100 ML SDV IV ONE (22:59)
[2018-02-24] MEDS ORDERED: Insulin GLARGINE(*) 1 UNITS UNIT SUBCUT SCH (23:00)
--- NOTE | 2018-02-25 00:32 | HP ---
CC: Dr. Fletcher* [facility] MEDICINE HISTORY AND PHYSICAL: DATE OF ADMISSION: 02/24/18 PRIMARY CARE PHYSICIAN: Dr. Fletcher. ATTENDING PHYSICIAN: Dr. Phan* (dictation provided by Ema Dumont NP) CHIEF COMPLAINT: Shortness of breath, fever and cough with generalized body aches. HISTORY OF PRESENT ILLNESS: Ms. Wolff is a 62-year-old female with a past medical history of COPD, type 2 diabetes which is insulin dependent, obstructive sleep apnea and hypothyroidism, who presents today to the hospital with concern for the onset of body aches, cough, shortness of breath, fever on Thursday. The patient reports that she had generalized malaise. She has had a non-productive cough. She has felt warm, but did not check her temperature. She denies any nausea, vomiting, diarrhea or abdominal pain. She denies chest pain. In the emergency room, Ms. Wolff was noted to have a fever of 102.6. She is mildly tachycardic with heart rate of about 100. She is significantly hypoxic with an O2 saturation of 84% on room air, but responded well to 2 to 3 liters of nasal cannula. The patient had flu swab checked which was positive. Her chest x-ray shows no acute process. She has no leukocytosis. Her CRP is 16. PAST MEDICAL HISTORY: 1. COPD. 2. Type 2 diabetes, insulin dependent. 3. Hypothyroidism. 4. Obstructive sleep apnea with CPAP usage. 5. Depression. 6. Lymphedema. MEDICATIONS: 1. Metformin 1500 mg p.o. at bedtime. 2. Glipizide 10 mg p.o. b.i.d. 3. Bupropion SR 150 mg p.o. b.i.d. 4. Paroxetine 40 mg p.o. daily. 5. Omeprazole 20 mg p.o. b.i.d. 6. Montelukast 10 mg p.o. at bedtime. 7. Losartan 100 mg p.o. daily. 8. Levothyroxine 400 mcg p.o. on Thursday, Thursday, , Thursday and Thursday and 200 mcg p.o. on Thursday and Thursday. 9. Latanoprost 0.005% ophthalmically one drop both eyes at bedtime. 10. Toujeo Max SoloStar 50 units subcutaneously daily. 11. Hydrochlorothiazide 25 mg p.o. daily. 12. Fluticasone/salmeterol 500/50 one puff inhaled b.i.d. 13. Dorzolamide/timolol 1 drop both eyes b.i.d. 14. Amlodipine 5 mg p.o. daily. 15. Albuterol with ipratropium nebulizer q.4 hours p.r.n. 16. Albuterol inhaler 1 puff inhaled q.4 hours p.r.n. ALLERGIES: To AMOXICILLIN, DOXYCYCLINE, and ERYTHROMYCIN BASE. FAMILY HISTORY: Mother at 89, had a history of aortic stenosis and hypertension. Dad at 78 with a history of diabetes, hypertension and dementia. SOCIAL HISTORY: The patient is a continued half a pack a day smoker. No reported alcohol or drug use. She states that her sister, Penelope Lowry, will be her healthcare proxy. REVIEW OF SYSTEMS: A 14-point review of systems was completed with Ms. Wolff and all those not mentioned above were negative. PHYSICAL EXAMINATION GENERAL: Ms. Wolff is sitting up in the bed. She is in no acute distress. VITAL SIGNS: Temperature was initially was 102.6, is now 99.8; heart rate 95; respiratory rate is 26; O2 saturation was 84% on room air, but now 91 to 92 on 2 to 3 liters nasal cannula; blood pressure 176/102. LUNGS: Actually clear to auscultation bilaterally with no accessory muscle use and good aeration. HEART: S1, S2. No murmur, rub, or gallop and regular. ABDOMEN: Soft and nontender with bowel sounds positive x4. EXTREMITIES: No cyanosis, positive for chronic edema. NEUROLOGIC: She is alert. She is oriented x3. She moves all extremities equally. There is no facial asymmetry or focal weakness. Extraocular movements are intact. SKIN: Intact. DIAGNOSTIC STUDIES/LAB DATA: Sodium 137, potassium 3.4, chloride 99, serum bicarbonate 30, BUN 8, creatinine 0.68, glucose 95, CRP 16.24. TSH is 0.30. WBC 7.8, hemoglobin 11.8, hematocrit 35, platelet count 266. Blood gas shows a pH of 7.49 with a pCO2 of 38, O2 of 51 and bicarbonate of 28.7. Flu B swab is positive. Chest x-ray shows no acute processes. ASSESSMENT: Ms. Wolff is a 62-year-old female with a past medical history of insulin-dependent type 2 diabetes, chronic obstructive pulmonary disease and obstructive sleep apnea, who presents today to the hospital with several days of malaise, cough and shortness of breath, found to have a positive flu swab and new hypoxia requiring 2 to 3 liters nasal cannula with sepsis. Our plans are for inpatient admission with expected length of stay will be greater than 2 days with the followin. Sepsis: The patient is flu positive and I think this explains this is the etiology for sepsis. Tamiflu has been started in the emergency room. She has had some IV fluids in the ED and I do not see an indiction at this point to continue with fluids. Her lactic acid is 1.0. Her blood pressure is actually high at 176/102. The patient states that she has been tolerating oral intake well. 2. Hypoxia. I am surprised by the level of the patient's hypoxia even in the setting of her chronic obstructive pulmonary disease. Her ABG shows metabolic alkalosis with significantly low O2 saturation. Though, I think the flu and chronic obstructive pulmonary disease could possibly explain that, it does not correlate clearly with the hypoxia and the metabolic alkalosis. Plan for a CTA of the chest now to rule out pulmonary embolism. 3. Type 2 diabetes. The patient states that her blood glucoses have been running on the low side at home. Plan to trial 40 units of Lantus tonight and we can adjust as needed. She will have blood glucoses q.a.c. with lispro sliding scale. 4. Hypothyroidism. The patient is on an enormous dose of levothyroxine, which has been verified with her. I see that her TSH is low. I am little hesitant to adjust the dose and requesting that she follow up with her endocrine providers. 5. Smoking. The patient is on nicotine inhaler p.r.n. 6. Chronic obstructive pulmonary disease. No evidence clearly of a chronic obstructive pulmonary disease exacerbation. Her lungs are clear and she is not retaining any CO2 according to the ABG. We will continue her home nebulizers and inhalers. 7. Hypertension. The patient's blood pressure is elevated. We will continue to monitor. This could be related to stress at being in the emergency room and acute illness. We will continue all of her blood pressure medications. 8. Disposition: To medical floor. 9. Code status: Full code. TIME SPENT: Approximately 60 minutes was spent in the admission of this patient , more than half the time spent with the patient at the bedside reviewing the events leading up to this hospitalization, performing the physical examination, and reviewing my plan of care. EMA DUMONT NP [id number]/[facility] #: [id number] ALMITA
[2018-02-25] MEDS ORDERED: Mouth Piece, Nicotine* 1 EACH CARTRIDGE INH ONE (01:00)
[2018-02-25] MEDS: Heparin VIAL(*) 5000 UNITS/ML VIAL (FIVE THOUSAND) SUBCUT SCH ×2 (05:16→12:51)
[2018-02-25 05:31] LABS: Urine Appearance Clear; Urine Bacteria 1+ (Absent); Urine Bilirubin Negative (Negative); Urine Blood 1+ (Negative); Urine Color Yellow; Urine Glucose Negative (Negative); Urine Ketones Negative (Negative); Urine Nitrite Negative (Negative); Urine Protein Negative (Negative); Urine Red Blood Cell Trace(0-2/hpf) (Absent); Urine Specific Gravity 1.019 (1.010-1.030); Urine Urobilinogen Negative (Negative); Urine White Blood Cell Trace(0-5/hpf) (Absent)
[2018-02-25] MEDS ORDERED: Levothyroxine TAB* 100 MCG TAB PO SCH (06:00)
--- NOTE | 2018-02-25 07:14 | PN ---
Subjective Date of Service: 02/25/18 Interval History: Reports she is much improved this morning and hoping for discharge. Objective Active Medications: Acetaminophen (Tylenol Tab*) 650 mg PO Q6H PRN PRN Reason: PAIN Albuterol (Ventolin Hfa Inhaler*) 1 puff INH Q4H PRN PRN Reason: WHEEZING Albuterol/Ipratropium (Duoneb (Albuterol 2.5 Mg/Ipratropium 0.5 Mg)) 1 neb INH Q4H PRN PRN Reason: WHEEZING Amlodipine Besylate (Norvasc Tab*) 5 mg PO DAILY [facility] Bupropion HCl (Wellbutrin Sr Tab*) 150 mg PO BID [facility] Dextrose (D50w Syringe 50 Ml*) 12.5 gm IV PUSH .FOR FS < 60 - SS PRN PRN Reason: FS < 60 Heparin Sodium (Porcine) (Heparin Vial(*)) 5,000 units SUBCUT Q8HR [facility] Last Admin: 02/25/18 05:16 Dose: 5,000 units Hydrochlorothiazide (Hydrodiuril Tab*) 25 mg PO DAILY [facility] Insulin Glargine (Lantus(*)) 40 units SUBCUT Q24H [facility] Last Admin: 02/25/18 00:22 Dose: 40 units Insulin Human Lispro (Humalog*) 0 units SUBCUT AC [facility]; Protocol Levothyroxine Sodium (Synthroid Tab*) 200 mcg PO SuMo@0600 [facility] Levothyroxine Sodium (Synthroid Tab*) 400 mcg PO TuWeThFrSa@0600 [facility] Last Admin: 02/25/18 05:16 Dose: 400 mcg Losartan Potassium (Cozaar Tab*) 100 mg PO DAILY [facility] Mometasone Furoate/Formoterol Fumar (Dulera 200/5 Mdi*) 2 puff INH BID [facility] Montelukast Sodium (Singulair Tab*) 10 mg PO BEDTIME [facility] Nicotine (Nicotine Inhaler*) 10 mg INH Q2H PRN PRN Reason: CRAVING Nicotine (Nicotine Patch 14 Mg/24 Hr*) 1 patch TRANSDERM DAILY [facility] Nicotine Polacrilex (Nicotine Gum*) 2 mg PO Q2H PRN PRN Reason: CRAVING Omeprazole (Prilosec Cap*) 20 mg PO BID [facility] Ondansetron HCl (Zofran Inj*) 4 mg IV Q6H PRN PRN Reason: NAUSEA Oseltamivir Phosphate (Tamiflu Cap*) 75 mg PO BID [facility] Stop: 03/01/18 21:01 Paroxetine HCl (Paxil Tab*) 40 mg PO DAILY [facility] Pharmacy Profile Note (Nicotine Patch Removal Note*) 1 note PATCH OFF 2100 [facility] Vital Signs - 8 hr 02/24/18 02/25/18 23:33 03:44 Temperature 98.7 F 98.9 F Pulse Rate 81 78 Respiratory 18 18 Rate Blood Pressure 143/71 172/92 (mmHg) O2 Sat by Pulse 95 99 Oximetry Oxygen Devices in Use Now: None Appearance: Comfortable, NAD Eyes: PERRLA Ears/Nose/Mouth/Throat: Clear Oropharnyx, Mucous Membranes Moist Neck: NL Appearance and Movements; NL JVP Respiratory: Symmetrical Chest Expansion and Respiratory Effort, Clear to Auscultation Cardiovascular: NL Sounds; No Murmurs; No JVD, RRR, No Edema Abdominal: NL Sounds; No Tenderness; No Distention Lymphatic: No Cervical Adenopathy Extremities: No Edema Neurological: Alert and Oriented x 3 Nutrition: Taking PO's Result Diagrams: 02/25/18 08:27 02/25/18 08:27 Additional Lab and Data: Lab Results 02/24/18 02/24/18 02/24/18 Range/Units 19:33 19:33 19:33 WBC 7.8 (3.5-10.8) 10^3/ul RBC 3.93 L (4.00-5.40) 10^6/ul Hgb 11.8 L (12.0-16.0) g/dl Hct 35 (35-47) % MCV 89 (80-97) fL MCH 30 (27-31) pg MCHC 34 (31-36) g/dl RDW 13 (10.5-15) % Plt Count 266 (150-450) 10^3/ul MPV 7.5 (7.4-10.4) fL Neut % (Auto) 74.1 % Lymph % (Auto) 15.5 % [place] % (Auto) 8.9 % Eos % (Auto) 0.9 % Baso % (Auto) 0.6 % Absolute Neuts (auto) 5.8 (1.5-7.7) 10^3/ul Absolute Lymphs (auto) 1.2 (1.0-4.8) 10^3/ul Absolute Monos (auto) 0.7 (0-0.8) 10^3/ul Absolute Eos (auto) 0.1 (0-0.6) 10^3/ul Absolute Basos (auto) 0 (0-0.2) 10^3/ul Absolute Nucleated RBC 0 10^3/ul Nucleated RBC % 0.1 ABG pH (7.35-7.45) ABG pCO2 (35-45) mmHg ABG pO2 (80-100) mmHg ABG HCO3 (19-31) mmol/L ABG O2 Saturation (94.0-98.0) % ABG Base Excess (-2.0-2.0) mmol/L Sodium 137 (135-145) mmol/L Potassium 3.4 L (3.5-5.0) mmol/L Chloride 99 L (101-111) mmol/L Carbon Dioxide 30 (22-32) mmol/L Anion Gap 8 (2-11) mmol/L BUN 8 (6-24) mg/dL Creatinine 0.68 (0.51-0.95) mg/dL Est GFR ( Amer) 106.8 (>60) Est GFR (Non-Af Amer) 88.3 (>60) BUN/Creatinine Ratio 11.8 (8-20) Glucose 95 (70-100) mg/dL Lactic Acid 1.0 (0.5-2.0) mmol/L Calcium 9.2 (8.6-10.3) mg/dL Total Bilirubin 0.40 (0.2-1.0) mg/dL AST 16 (13-39) U/L ALT 13 (7-52) U/L Alkaline Phosphatase 80 (34-104) U/L C-Reactive Protein 16.24 H (<8.01) mg/L Total Protein 7.0 (6.4-8.9) g/dL Albumin 3.9 (3.2-5.2) g/dL Globulin 3.1 (2-4) g/dL Albumin/Globulin Ratio 1.3 (1-3) TSH 0.30 L (0.34-5.60) mcIU/mL Influenza B (Rapid) (Negative) 02/24/18 02/24/18 Range/Units 20:09 20:24 WBC (3.5-10.8) 10^3/ul RBC (4.00-5.40) 10^6/ul Hgb (12.0-16.0) g/dl Hct (35-47) % MCV (80-97) fL MCH (27-31) pg MCHC (31-36) g/dl RDW (10.5-15) % Plt Count (150-450) 10^3/ul MPV (7.4-10.4) fL Neut % (Auto) % Lymph % (Auto) % [place] % (Auto) % Eos % (Auto) % Baso % (Auto) % Absolute Neuts (auto) (1.5-7.7) 10^3/ul Absolute Lymphs (auto) (1.0-4.8) 10^3/ul Absolute Monos (auto) (0-0.8) 10^3/ul Absolute Eos (auto) (0-0.6) 10^3/ul Absolute Basos (auto) (0-0.2) 10^3/ul Absolute Nucleated RBC 10^3/ul Nucleated RBC % ABG pH 7.49 H (7.35-7.45) ABG pCO2 38 (35-45) mmHg ABG pO2 51 L* (80-100) mmHg ABG HCO3 28.7 (19-31) mmol/L ABG O2 Saturation 86.2 L (94.0-98.0) % ABG Base Excess 5.4 H (-2.0-2.0) mmol/L Sodium (135-145) mmol/L Potassium (3.5-5.0) mmol/L Chloride (101-111) mmol/L Carbon Dioxide (22-32) mmol/L Anion Gap (2-11) mmol/L BUN (6-24) mg/dL Creatinine (0.51-0.95) mg/dL Est GFR ( Amer) (>60) Est GFR (Non-Af Amer) (>60) BUN/Creatinine Ratio (8-20) Glucose (70-100) mg/dL Lactic Acid (0.5-2.0) mmol/L Calcium (8.6-10.3) mg/dL Total Bilirubin (0.2-1.0) mg/dL AST (13-39) U/L ALT (7-52) U/L Alkaline Phosphatase (34-104) U/L C-Reactive Protein (<8.01) mg/L Total Protein (6.4-8.9) g/dL Albumin (3.2-5.2) g/dL Globulin (2-4) g/dL Albumin/Globulin Ratio (1-3) TSH (0.34-5.60) mcIU/mL Influenza B (Rapid) Positive A (Negative) Microbiology and Other Data: Microbiology 02/24/18 19:50 Influenza Types A,B Antigen - Final Nasal Specimen received for Influenza A/B Molecular testing Assess/Plan/Problems-Billing Assessment: 62 yr old female with pmh of COPD, DM2, ROSANNE, hypothyroid, depression, and lymphedema; who presented to the ED with sob, cough, fever, and body. She was found to have Flu B, requiring supplemental O2 to maintain O2 saturation, and metabolic alkolosis. - Patient Problems (1) Influenza Comment: - Cont Tamiflu at home (2) Oxygen desaturation Comment: - Continue nebs and inhalers - O2 wnl on room air - Encourage deep breathing and incentive spirometer (3) Metabolic alkalosis Comment: - Suspected etiology flu and increase work of breathing - Potassium also low and replaced. - Encouraged follow up with PCP after discharge (4) DM type 2 (diabetes mellitus, type 2) Comment: - Continue home regime as same after discharge with close monitoring of intake and glucose. - Dicussed risk of hypoglycemia with reduced intake and s/s of hypoglycemia (5) Depression Comment: - Cont Paxil and Wellbutrin (6) Hypothyroid Comment: - - TSH 0.30. - TSH is slightly below normal a small dose reduction of 12 to 25 mcg/day would be sufficient, but I am hesitant given larage doses of synthroid. - Encouraged to follow up with PCP regarding needed adjustments - In addition reffered to Dr Patel as outpatient (7) ROSANNE (obstructive sleep apnea) Comment: - Uses CPAP (8) Sepsis Comment: -Met Sepsis criteria on admission with temp of 102.6, RR 27, and HR 100. - Received IV fluids and Tamiflu (as she was FLu B positive) - Resolved (9) DVT prophylaxis Comment: - Heparin sc. - Encourage ambulation Status and Disposition: Patient is stable for discharge home Attending: Franklin Sandra
[2018-02-25] MEDS: Insulin LISPRO* 1 UNITS UNIT SUBCUT SCH ×2 (07:45→12:51)
[2018-02-25] MEDS ORDERED: PARoxetine HCL TAB* 40 MG PO SCH (09:00)
[2018-02-25] MEDS ORDERED: Hydrochlorothiazide TAB* 25 MG PO SCH (09:00)
[2018-02-25] MEDS ORDERED: Omeprazole CAP* 20 MG PO SCH (09:00)
[2018-02-25] MEDS ORDERED: Losartan TAB* 25 MG PO SCH (09:00)
[2018-02-25] MEDS ORDERED: buPROPion SR TAB.SR* 150 MG PO SCH (09:00)
[2018-02-25] MEDS ORDERED: Mometasone/Formoter 200/5 MDI INH SCH (09:00)
[2018-02-25] MEDS ORDERED: amLODIPine TAB* 5 MG PO SCH (09:00)
[2018-02-25] MEDS ORDERED: Oseltamivir CAP* 75 MG CAP PO SCH (09:00)
[2018-02-25] MEDS ORDERED: Nicotine PATCH 14 MG/24 HR* PATCH TRANSDERM SCH (09:00)
[2018-02-25 09:01] LABS: ABS Basophils 0.1 10^3/ul (0-0.2); ABS Eosinophils 0.1 10^3/ul (0-0.6); ABS Lymphocytes 1.2 10^3/ul (1.0-4.8); ABS Monocytes 0.6 10^3/ul (0-0.8); ABS Neutrophils 3.5 10^3/ul (1.5-7.7); ABS Nucleated RBC 0 10^3/ul; Eosinophil % 1.7 %; Hematocrit 35 % (35-47); Hemoglobin 11.9 g/dl (12.0-16.0); Lymphocyte % 22.7 %; Mean Corpuscular HGB Conc 34 g/dl (31-36); Mean Corpuscular Hemoglobin 30 pg (27-31); Mean Corpuscular Volume 88 fL (80-97); Mean Platelet Volume 7.4 fL (7.4-10.4); Nucleated Red Blood Cells % 0.1; Platelet Count 241 10^3/ul (150-450); Red Blood Count 3.91 10^6/ul (4.00-5.40); Red Cell Distribution Width 13 % (10.5-15); White Blood Count 5.5 10^3/ul (3.5-10.8)
[2018-02-25 09:17] LABS: BUN/Creatinine Ratio 14.5 (8-20); Calcium 8.8 mg/dL (8.6-10.3); EGFR Non-African American 112.7 (>60); Potassium 3.1 mmol/L (3.5-5.0)
[2018-02-25] MEDS ORDERED: Potassium Chlor TAB* 20 MEQ TAB.ER PO ONE (09:34)
[2018-02-25 11:47] VITALS: BP 155/76
[2018-02-25] MEDS ORDERED: Montelukast Sodium TAB* 10 MG PO SCH (21:00)
[2018-02-25] MEDS ORDERED: Nicotine Patch Removal NOTE PATCH OFF SCH (21:00)
--- NOTE | 2018-02-25 23:32 | DS ---
ADDENDUM: The patient's potassium was noted to be 3.4 on admission and 3.1 today. The patient received 40 mEq p.o. today. The patient should follow up with her primary care in 1 week for a repeat potassium. The patient was educated on this and states understanding. KWABENA BRAUN, MARQUITA [id number]/[facility] #: [id number] ALMITA
--- NOTE | 2018-02-26 00:06 | DS ---
CC: Dr. Fletcher* DISCHARGE SUMMARY: DATE OF ADMISSION: 02/24/18 DATE OF DISCHARGE: 02/25/18 PRIMARY CARE PROVIDER: Dr. Fletcher. ATTENDING PHYSICIAN: Dr. Sandra* (dictated by Alla Kendrick NP). PRIMARY DIAGNOSES: 1. Flu-B. 2. Shortness of breath. 3. Fever. 4. Cough. 5. General body aches. SECONDARY DIAGNOSES: 1. Chronic obstructive pulmonary disease. 2. Type 2 diabetes. 3. Hypothyroid. 4. Sleep apnea with CPAP. 5. Depression. 6. Lymphedema. CONSULTATIONS WHILE IN THE HOSPITAL: No consultations. PROCEDURES WHILE IN THE HOSPITAL: No procedures. STUDIES WHILE IN THE HOSPITAL: Chest x-ray shows no acute process. DISCHARGE MEDICATIONS: New home medication: Tamiflu 75 mg p.o. b.i.d. for 5 days. Continued home medications: 1. Metformin 1500 mg p.o. at bedtime. 2. Glipizide 10 mg p.o. b.i.d. 3. Bupropion SR 150 mg p.o. b.i.d. 4. Paroxetine 40 mg p.o. daily. 5. Omeprazole 20 mg p.o. b.i.d. 6. Montelukast 10 mg p.o. at bedtime. 7. Losartan 100 mg p.o. daily. 8. Levothyroxine 400 mcg p.o. on Thursday, Thursday, , Thursday, and Thursday and 200 mcg p.o. on Thursday and Thursday. 9. Latanoprost 0.05% ophthalmically one drop both eyes at bedtime. 10. Toujeo Max SoloSTAR 50 units subcutaneous daily. 11. Hydrochlorothiazide 25 mg p.o. daily. 12. Fluticasone/salmeterol 500/50 one puff inhaled b.i.d. 13. Dorzolamide/timolol one drop both eyes b.i.d. 14. Amlodipine 5 mg p.o. daily. 15. Albuterol with ipratropium nebulizer q.4 hours p.r.n. 16. Albuterol inhaler one puff inhaled q.4 hours p.r.n. Changed home medications: No home medication change. Discontinued home medications: No home medications discontinued. HISTORY OF PRESENT ILLNESS/HOSPITAL COURSE: Ms. Wolff is a 62-year-old female with past medical history significant for COPD, diabetes, ROSANNE, hypothyroid who presented to the emergency department on 02/24/18 with a complaint of shortness of breath, fever, and cough with generalized body aches. Please see history and physical dictated by Ema Dumont NP, for a complete summary of the events leading up to this hospitalization, but in short, the patient was found to be hypoxic with an O2 saturation of 84% on room air, febrile at 102.6, and heart rate of 100. The patient was found to be flu positive. Therefore, she was admitted to the hospital for supportive care. During this hospitalization, the patient received IV fluids, supplemental oxygen , nebulizers, and Tamiflu. The patient has responded well to the treatment and today her O2 saturation is within normal limits on room air. She has been afebrile since admission . In addition, she is no longer tachycardic with a heart rate of 88. Ms. Wolff is stable for discharge home. Vital Signs: Temp 99.4, HR 85, RR 16 , O2 sat 94% room air, BP 155/76. DISCHARGE PLAN/FOLLOWUP: Ms. Wolff will be discharged home with instructions as follows: 1. Flu: The patient has been instructed to rest, increase fluid intake, monitor fever. In addition, she has been sent a prescription of Tamiflu to complete a total of 5 days. 2. Shortness of breath: The patient reports this has resolved since admission. 3. Fever: As previously mentioned, the patient has been afebrile since her initial presentation to the emergency department. 4. Cough: The patient reports cough has decreased significantly since admission. The patient is to continue her inhalers and nebulizers at home as same. 5. General body aches: The patient reports body aches have resolved. 6. Chronic obstructive pulmonary disease: The patient is to continue home medications as the same. 7. Type 2 diabetes: The patient is instructed to continue home medications as the same with a close eye on her blood sugar if her dietary intake decreases. The patient states understanding. Discussed signs and symptoms of hypoglycemia. 8. Hypothyroid: The patient is on her normal dose of Synthroid. TSH was mildly low at 0.30. I discussed this with the patient. We were hesitant to adjust the patient's thyroid medication while in the hospital due to her acute state and also due to her increased need of large doses of Synthroid. I have encouraged the patient to follow up with her primary care. In addition, I have discussed that the patient would benefit from an Endocrinology consult. I have provided the patient with Dr. Noel Patel's number and contact information. 9. Obstructive sleep apnea with CPAP use: The patient is to continue CPAP use as same. 10. Depression: The patient is to continue home meds as same. 11. Education: The patient was educated on when she should return to the ER, nearest hospital, specifically if she has any worsening symptoms, shortness of breath, lightheadedness, dizziness, chest discomfort, high fevers, chills, night sweats, loss of consciousness, or any other worrisome signs and symptoms. The patient stated understanding. 12. Low Potassium: Patient's potassium was 3.4 on admission and 3.1 today. She received PO supplementation and she would benefit from a repeat BMP in 1 week with her pcp. This is a summarized report of a complex medical history and hospital stay. For further details, please see the entire medical record. TIME SPENT: Approximately 45 minutes were spent on this discharge, greater than half of that time was spent [id number] with the patient discussing discharge plans and instructions. ALMITA
[2018-02-28] MEDS ORDERED: Levothyroxine TAB* 100 MCG TAB PO SCH (06:00)
== END 2018-02-25 14:45 | disposition home or self-care (01) | DRG 872 ==
LOC: ED 18:27 → MED 22:20
PROVIDERS: ADMIT Internal Medicine; ATTEND Internal Medicine
PROC: 5A09357 Assistance with Respiratory Ventilation, Less than 24 Consecutive Hours, Continuous Positive Airway Pressure (ICD-10-PCS; principal; 2018-02-25)
DX: A41.9 Sepsis, unspecified organism (principal); E87.3 Alkalosis; J10.1 Influenza due to other identified influenza virus with other respiratory manifestations; F17.210 Nicotine dependence, cigarettes, uncomplicated; E11.39 Type 2 diabetes mellitus with other diabetic ophthalmic complication; R40.2362 Coma scale, best motor response, obeys commands, at arrival to emergency department; H42 Glaucoma in diseases classified elsewhere; F32.9 Major depressive disorder, single episode, unspecified; J44.9 Chronic obstructive pulmonary disease, unspecified; I10 Essential (primary) hypertension; K21.9 Gastro-esophageal reflux disease without esophagitis; R40.2142 Coma scale, eyes open, spontaneous, at arrival to emergency department; R40.2252 Coma scale, best verbal response, oriented, at arrival to emergency department; E03.9 Hypothyroidism, unspecified; G47.33 Obstructive sleep apnea (adult) (pediatric); R09.02 Hypoxemia; I89.0 Lymphedema, not elsewhere classified; Z82.0 Family history of epilepsy and other diseases of the nervous system; Z87.440 Personal history of urinary (tract) infections; Z86.14 Personal history of Methicillin resistant Staphylococcus aureus infection; Z90.710 Acquired absence of both cervix and uterus; Z88.1 Allergy status to other antibiotic agents; Z88.0 Allergy status to penicillin; Z82.49 Family history of ischemic heart disease and other diseases of the circulatory system; Z83.3 Family history of diabetes mellitus; Z79.84 Long term (current) use of oral hypoglycemic drugs
CPT/HCPCS: 36415; 71046; 71275; 80048; 80053; 81003; 81015; 82803; 83605; 84443; 85025; 86140; 87040; 87077; 87086; 87186; 94640; 94660; 99284; 99406; A9270-GY; J1644; Q9967

== ENCOUNTER 2021-10-28 08:35 | Observation (INO) ==
[2021-10-28] MEDS ORDERED: Furosemide 40 mg/4 ml IV VIAL IV SLOW PU ONE (08:46)
[2021-10-28 09:18] LABS: ABS Basophils 0.1 10^3/ul (0-0.2); ABS Eosinophils 0.2 10^3/ul (0-0.6); ABS Lymphocytes 1.4 10^3/ul (1.0-4.8); ABS Monocytes 0.3 10^3/ul (0-0.8); ABS Neutrophils 7.7 10^3/ul (1.5-7.7); Hematocrit 30 % (35-47); Hemoglobin 9.7 g/dL (12.0-16.0); Lymphocyte % 14.3 %; Mean Corpuscular HGB Conc 33 g/dL (31-36); Mean Corpuscular Hemoglobin 28 pg (27-31); Mean Corpuscular Volume 87 fL (80-97); Platelet Count 318 10^3/uL (150-450); Red Blood Count 3.44 10^6 /uL (3.70-4.87); Red Cell Distribution Width 18 % (10-15); White Blood Count 9.8 10^3/uL (3.5-10.8)
[2021-10-28 09:51] LABS: ALT 7 U/L (7-52); Albumin 3.9 g/dL (3.2-5.2); Albumin/Globulin Ratio 1.3 (1-3); Alkaline Phosphatase 88 U/L (35-149); Blood Urea Nitrogen 11 mg/dL (6-24); CO2 Carbon Dioxide 27 mmol/L (22-32); Calcium 9.4 mg/dL (8.6-10.3); Chloride 102 mmol/L (101-111); Globulin 2.9 g/dL (2-4); Glucose 136 mg/dL (70-100); Sodium 141 mmol/L (135-145); Total Protein 6.8 g/dL (6.4-8.9); eGFR CKD-EPI 76.9 (>60)
[2021-10-28 10:00] LABS: Anion Gap 12 mmol/L (2-11)
[2021-10-28] MEDS ORDERED: Enoxaparin 40 MG/0.4 ML SYR SUBCUT SCH (13:00)
[2021-10-28] MEDS ORDERED: Albuterol HFA INHALER 8 gm MDI INH PRN (13:01)
[2021-10-28] MEDS ORDERED: Perflutren Lipid Microsphere 3 ML VIAL ONE (13:43)
[2021-10-28] MEDS ORDERED: Dextrose 50% Syringe 50 ml 25 GM/50 ML SYRINGE IV PUSH PRN (13:46)
[2021-10-28] MEDS ORDERED: Losartan/HCTZ 100/25 TAB (NF) PO SCH (14:00)
[2021-10-28] MEDS: Aspirin EC 81 mg TAB.EC (enteric coated) PO SCH (14:42)
[2021-10-28] MEDS ORDERED: Iron Sucrose 200 MG in NS 0.9% 100 ml BAG 100 ML IVPB ONE (15:22)
[2021-10-28] MEDS ORDERED: Furosemide 40 mg/4 ml IV VIAL IV ONE (18:00)
[2021-10-28] MEDS: Mometasone 220 MCG MDI INH SCH ×2 (20:07→20:10)
[2021-10-28] MEDS ORDERED: Latanoprost 0.005% 2.5 ml BTL BOTH EYES SCH (21:00)
[2021-10-28 21:20] LABS: Magnesium 1.8 mg/dL (1.9-2.7)
[2021-10-28 21:48] LABS: TSH Ultra Thyroid Stim Horm 0.27 mcIU/mL (0.34-5.60)
[2021-10-28] MEDS: CMCS: Dorzolamide/Timolol OPTH (NF) 10 ML BOT BOTH EYES SCH (23:21)
[2021-10-29 05:48] LABS: ABS Basophils 0.1 10^3/ul (0-0.2); ABS Eosinophils 0.2 10^3/ul (0-0.6); ABS Lymphocytes 1.5 10^3/ul (1.0-4.8); ABS Monocytes 0.5 10^3/ul (0-0.8); ABS Neutrophils 8.2 10^3/ul (1.5-7.7); Eosinophil % 2.3 %; Hematocrit 31 % (35-47); Hemoglobin 9.7 g/dL (12.0-16.0); Lymphocyte % 14.1 %; Mean Corpuscular HGB Conc 32 g/dL (31-36); Mean Corpuscular Hemoglobin 27 pg (27-31); Mean Corpuscular Volume 86 fL (80-97); Mean Platelet Volume 7.5 fL (7.4-10.4); Nucleated Red Blood Cells % 0.3; Platelet Count 305 10^3/uL (150-450); Red Cell Distribution Width 18 % (10-15); White Blood Count 10.5 10^3/uL (3.5-10.8)
[2021-10-29 06:31] LABS: Calcium 9.5 mg/dL (8.6-10.3); Magnesium 1.7 mg/dL (1.9-2.7); Potassium 3.5 mmol/L (3.5-5.0); eGFR CKD-EPI 71.8 (>60)
[2021-10-29] MEDS ORDERED: Magnesium Sulfate 2 gm BAG 2 GM/50 ML BAG IVPB ONE (08:06)
[2021-10-29] MEDS: Aspirin EC 81 mg TAB.EC (enteric coated) PO SCH (09:06)
[2021-10-29 09:07] LABS: Free T4 1.89 ng/dL (0.61-1.12)
[2021-10-29] MEDS: CMCS: Dorzolamide/Timolol OPTH (NF) 10 ML BOT BOTH EYES SCH (09:15)
[2021-10-29 15:23] VITALS: BP 127/74
== END 2021-10-29 14:56 | disposition home or self-care (01) ==
LOC: ED 08:35 → EDHOLD 12:26 → INTOOBSV 12:26 → EDHOLD 16:26 → MEDTELE 16:47
PROVIDERS: ADMIT Internal Medicine; ATTEND Internal Medicine

== ENCOUNTER 2022-05-01 12:17 | Inpatient (IN) ==
[2022-05-01] MEDS ORDERED: Lactated Ringers 1000 ml BAG 1,000 ML IV ONE (15:51)
[2022-05-01 17:07] LABS: Hematocrit 35 % (35-47); Hemoglobin 11.2 g/dL (12.0-16.0); Mean Corpuscular HGB Conc 32 g/dL (31-36); Mean Corpuscular Hemoglobin 28 pg (27-31); Mean Corpuscular Volume 88 fL (80-97); Mean Platelet Volume 7.4 fL (7.4-10.4); Platelet Count 325 10^3/uL (150-450); Red Blood Count 3.98 10^6 /uL (3.70-4.87); Red Cell Distribution Width 17 % (10-15); White Blood Count 31.8 10^3/uL (3.5-10.8)
[2022-05-01] MEDS ORDERED: Cefepime 2 GM in Dextrose 2 GM/50 ML BAG IV ONE (17:15)
[2022-05-01] MEDS ORDERED: metroNIDAZOLE IV 500 MG/100ML 500 MG/100 ML BAG IVPB ONE (17:15)
[2022-05-01] MEDS ORDERED: [UNRECOGNIZED DRUG - OTHER] IV ONE (17:15)
[2022-05-01 17:52] LABS: ALT 7 U/L (7-52); Albumin 4.2 g/dL (3.2-5.2); Albumin/Globulin Ratio 1.1 (1-3); Alkaline Phosphatase 94 U/L (35-149); Blood Urea Nitrogen 15 mg/dL (6-24); CO2 Carbon Dioxide 31 mmol/L (22-32); Calcium 9.5 mg/dL (8.6-10.3); Chloride 96 mmol/L (101-111); Creatinine, Serum 1.05 mg/dL (0.51-0.95); Globulin 3.9 g/dL (2-4); Glucose 105 mg/dL (70-100); Sodium 135 mmol/L (135-145); Total Protein 8.1 g/dL (6.4-8.9); eGFR CKD-EPI 59.3 (>60)
[2022-05-01] MEDS ORDERED: Vancomycin 1,750 MG in NS 0.9% 500 ml BAG 500 ML IVPB ONE (18:00)
[2022-05-01] MEDS ORDERED: Vancomycin 1,750 MG in NS 0.9% 250 ml 250 ML IVPB ONE (18:00)
[2022-05-01 18:02] LABS: ABS Basophils 0.1 10^3/ul (0-0.2); ABS Lymphocytes 1.5 10^3/ul (1.0-4.8); ABS Monocytes 0.8 10^3/ul (0-0.8); ABS Neutrophils 29.5 10^3/ul (1.5-7.7); Lymphocyte % 4.7 %
[2022-05-01 18:03] LABS: Anion Gap 8 mmol/L (2-11)
[2022-05-01 18:55] LABS: Activated Partial Thrombo Time 33.6 seconds (26.0-38.0); INR 1.6 (0.88-1.18)
[2022-05-01 19:03] LABS: High Sensitivity Troponin 1 Hr 15 pg/mL (<15)
[2022-05-01 19:15] LABS: Urine Appearance Cloudy; Urine Bilirubin Negative (Negative); Urine Blood Negative (Negative); Urine Color Yellow; Urine Glucose 3+(>=500 mg/dL) (Negative); Urine Ketones Negative (Negative); Urine Nitrite Negative (Negative); Urine Protein Negative (Negative); Urine Specific Gravity 1.022 (1.002-1.030); Urine Urobilinogen Negative (Negative)
[2022-05-01] MEDS ORDERED: Iodixanol (CONTRAST) 320 MG/ML 100 ML SDV IV ONE (19:45)
[2022-05-01] MEDS ORDERED: Ondansetron 4 mg VIAL 2 MG/ML 2 ml VIAL IV PRN (20:56)
[2022-05-01] MEDS: Enoxaparin 40 MG/0.4 ML SYR SUBCUT SCH (21:17)
[2022-05-01] MEDS ORDERED: HYDROcodone/ACETAMIN 5/325 mg TAB PO PRN (21:30)
[2022-05-01] MEDS ORDERED: Albuterol HFA INHALER 8 gm MDI INH PRN (21:30)
[2022-05-01] MEDS ORDERED: Albuterol/Ipratropium NEB.SOL (2.5/0.5 MG) 3 ML NEB.SOLN INH PRN (21:30)
[2022-05-01 21:50] LABS: Magnesium 1.8 mg/dL (1.9-2.7)
[2022-05-01 21:53] LABS: Potassium Redraw 3.8 mmol/L (3.5-5.0)
[2022-05-01] MEDS ORDERED: Cefepime 2 GM in Dextrose 2 GM/50 ML BAG IV SCH (22:00)
[2022-05-01] MEDS ORDERED: Dextrose 50% Syringe 50 ml 25 GM/50 ML SYRINGE IV PUSH PRN (22:00)
[2022-05-01] MEDS ORDERED: Vancomycin per Pharmacy 1 EA NOTE FOLLOW UP SCH (22:00)
[2022-05-01] MEDS ORDERED: metroNIDAZOLE IV 500 MG/100ML 500 MG/100 ML BAG IVPB SCH (22:00)
[2022-05-02] MEDS: metroNIDAZOLE IV 500 MG/100ML 500 MG/100 ML BAG IVPB SCH ×3 (05:36→22:12)
[2022-05-02 05:45] LABS: ABS Basophils 0.1 10^3/ul (0-0.2); ABS Eosinophils 0.1 10^3/ul (0-0.6); ABS Lymphocytes 1.3 10^3/ul (1.0-4.8); ABS Monocytes 1.1 10^3/ul (0-0.8); ABS Neutrophils 14.5 10^3/ul (1.5-7.7); Eosinophil % 0.5 %; Hematocrit 29 % (35-47); Hemoglobin 9.2 g/dL (12.0-16.0); Lymphocyte % 7.7 %; Mean Corpuscular HGB Conc 32 g/dL (31-36); Mean Corpuscular Hemoglobin 28 pg (27-31); Mean Corpuscular Volume 88 fL (80-97); Mean Platelet Volume 7.4 fL (7.4-10.4); Platelet Count 249 10^3/uL (150-450); Red Blood Count 3.32 10^6 /uL (3.70-4.87); Red Cell Distribution Width 17 % (10-15); White Blood Count 17.1 10^3/uL (3.5-10.8)
[2022-05-02 06:40] LABS: Blood Urea Nitrogen 13 mg/dL (6-24); CO2 Carbon Dioxide 28 mmol/L (22-32); Calcium 8.2 mg/dL (8.6-10.3); Chloride 101 mmol/L (101-111); Creatinine, Serum 0.92 mg/dL (0.51-0.95); Glucose 85 mg/dL (70-100); Sodium 135 mmol/L (135-145); eGFR CKD-EPI 69.5 (>60)
[2022-05-02 06:53] LABS: Anion Gap 6 mmol/L (2-11)
[2022-05-02] MEDS ORDERED: Cefepime 2 GM in Dextrose 2 GM/50 ML BAG IV SCH (09:00)
[2022-05-02] MEDS: Aspirin EC 81 mg TAB.EC (enteric coated) PO SCH (09:55)
[2022-05-02] MEDS: Mometasone 220 MCG MDI INH SCH (09:57)
[2022-05-02] MEDS: Vancomycin 1000 MG in NS 0.9% 250 ML IVPB SCH ×2 (12:11→23:21)
[2022-05-02] MEDS ORDERED: Vancomycin 1,750 MG in NS 0.9% 500 ml BAG 500 ML IVPB SCH (15:00)
[2022-05-02] MEDS: Enoxaparin 40 MG/0.4 ML SYR SUBCUT SCH (21:28)
[2022-05-02] MEDS: Latanoprost 0.005% 2.5 ml BTL BOTH EYES SCH (21:28)
[2022-05-02] MEDS: Cefepime 2 GM in Dextrose 2 GM/50 ML BAG IV SCH (21:29)
[2022-05-03] MEDS: metroNIDAZOLE IV 500 MG/100ML 500 MG/100 ML BAG IVPB SCH ×3 (05:56→21:37)
[2022-05-03 07:32] LABS: ABS Basophils 0.1 10^3/ul (0-0.2); ABS Eosinophils 0.2 10^3/ul (0-0.6); ABS Lymphocytes 1.6 10^3/ul (1.0-4.8); ABS Monocytes 0.7 10^3/ul (0-0.8); ABS Neutrophils 7.1 10^3/ul (1.5-7.7); Eosinophil % 2.4 %; Hematocrit 29 % (35-47); Hemoglobin 9.6 g/dL (12.0-16.0); Lymphocyte % 16.6 %; Mean Corpuscular HGB Conc 33 g/dL (31-36); Mean Corpuscular Hemoglobin 28 pg (27-31); Mean Corpuscular Volume 86 fL (80-97); Mean Platelet Volume 7.5 fL (7.4-10.4); Platelet Count 255 10^3/uL (150-450); Red Blood Count 3.39 10^6 /uL (3.70-4.87); Red Cell Distribution Width 17 % (10-15); White Blood Count 9.7 10^3/uL (3.5-10.8)
[2022-05-03] MEDS: Mometasone 220 MCG MDI INH SCH (07:46)
[2022-05-03 07:55] LABS: Calcium 8.5 mg/dL (8.6-10.3); Creatinine, Serum 0.89 mg/dL (0.51-0.95); Potassium 3.5 mmol/L (3.5-5.0); eGFR CKD-EPI 72.4 (>60)
[2022-05-03] MEDS: Cefepime 2 GM in Dextrose 2 GM/50 ML BAG IV SCH ×2 (09:50→20:49)
[2022-05-03] MEDS: Aspirin EC 81 mg TAB.EC (enteric coated) PO SCH (09:50)
[2022-05-03] MEDS ORDERED: Iodixanol (CONTRAST) 320 MG/ML 100 ML SDV IV ONE (10:03)
[2022-05-03] MEDS ORDERED: Vancomycin Trough Check NOTE FOLLOW UP ONE (10:30)
[2022-05-03] MEDS: Vancomycin 1000 MG in NS 0.9% 250 ML IVPB SCH ×2 (12:45→22:44)
[2022-05-03] MEDS ORDERED: fentaNYL 100 mcg/2 ml 50 MCG/ML VIAL ONE (14:16)
[2022-05-03] MEDS ORDERED: Lidocaine 2% PF 5 ML VIAL ONE (14:16)
[2022-05-03] MEDS ORDERED: Propofol 10 MG/ML 20 ML BTL ONE (14:16)
[2022-05-03] MEDS ORDERED: Bupivacaine 0.5% 50 ML MDV VIAL ONE (14:33)
[2022-05-03] MEDS: Enoxaparin 40 MG/0.4 ML SYR SUBCUT SCH (20:45)
[2022-05-03] MEDS: Latanoprost 0.005% 2.5 ml BTL BOTH EYES SCH (20:47)
[2022-05-04] MEDS: metroNIDAZOLE IV 500 MG/100ML 500 MG/100 ML BAG IVPB SCH ×3 (05:35→21:03)
[2022-05-04 08:22] LABS: ABS Basophils 0.1 10^3/ul (0-0.2); ABS Eosinophils 0.3 10^3/ul (0-0.6); ABS Lymphocytes 1.7 10^3/ul (1.0-4.8); ABS Monocytes 0.8 10^3/ul (0-0.8); ABS Neutrophils 5.8 10^3/ul (1.5-7.7); Eosinophil % 2.9 %; Hematocrit 29 % (35-47); Hemoglobin 9.6 g/dL (12.0-16.0); Lymphocyte % 19.9 %; Mean Corpuscular HGB Conc 33 g/dL (31-36); Mean Corpuscular Hemoglobin 29 pg (27-31); Mean Corpuscular Volume 87 fL (80-97); Mean Platelet Volume 7.4 fL (7.4-10.4); Platelet Count 238 10^3/uL (150-450); Red Blood Count 3.37 10^6 /uL (3.70-4.87); Red Cell Distribution Width 17 % (10-15); White Blood Count 8.7 10^3/uL (3.5-10.8)
[2022-05-04] MEDS: Mometasone 220 MCG MDI INH SCH (08:22)
[2022-05-04 08:33] LABS: C Reactive Protein 52.07 mg/L (<8.01); Calcium 8.6 mg/dL (8.6-10.3); Creatinine, Serum 0.94 mg/dL (0.51-0.95); Potassium 3.4 mmol/L (3.5-5.0); eGFR CKD-EPI 67.8 (>60)
[2022-05-04] MEDS ORDERED: KCL 10 MEQ/50 ML IVPREMIX 10 MEQ/50 ML BAG IV ONE (09:08)
[2022-05-04] MEDS: Aspirin EC 81 mg TAB.EC (enteric coated) PO SCH (11:21)
[2022-05-04] MEDS: Cefepime 2 GM in Dextrose 2 GM/50 ML BAG IV SCH ×3 (12:07→19:48)
[2022-05-04] MEDS: Vancomycin 1000 MG in NS 0.9% 250 ML IVPB SCH ×2 (13:08→22:08)
[2022-05-04] MEDS: Enoxaparin 40 MG/0.4 ML SYR SUBCUT SCH (19:51)
[2022-05-04] MEDS: Latanoprost 0.005% 2.5 ml BTL BOTH EYES SCH (19:55)
[2022-05-05] MEDS: metroNIDAZOLE IV 500 MG/100ML 500 MG/100 ML BAG IVPB SCH ×3 (05:52→21:46)
[2022-05-05 06:31] LABS: ABS Basophils 0.1 10^3/ul (0-0.2); ABS Eosinophils 0.4 10^3/ul (0-0.6); ABS Lymphocytes 1.9 10^3/ul (1.0-4.8); ABS Monocytes 0.9 10^3/ul (0-0.8); ABS Neutrophils 8.1 10^3/ul (1.5-7.7); Eosinophil % 3.1 %; Hematocrit 30 % (35-47); Hemoglobin 9.6 g/dL (12.0-16.0); Lymphocyte % 16.8 %; Mean Corpuscular HGB Conc 32 g/dL (31-36); Mean Corpuscular Hemoglobin 28 pg (27-31); Mean Corpuscular Volume 87 fL (80-97); Mean Platelet Volume 7.5 fL (7.4-10.4); Platelet Count 271 10^3/uL (150-450); Red Blood Count 3.43 10^6 /uL (3.70-4.87); Red Cell Distribution Width 17 % (10-15); White Blood Count 11.4 10^3/uL (3.5-10.8)
[2022-05-05 06:52] LABS: C Reactive Protein 25.19 mg/L (<8.01); Calcium 8.7 mg/dL (8.6-10.3); Creatinine, Serum 1.11 mg/dL (0.51-0.95); Magnesium 1.8 mg/dL (1.9-2.7); Potassium 3.4 mmol/L (3.5-5.0); eGFR CKD-EPI 55.5 (>60)
[2022-05-05 07:04] LABS: TSH Ultra Thyroid Stim Horm 12.64 mcIU/mL (0.34-5.60)
[2022-05-05] MEDS ORDERED: Potassium Chlor 10 meq TAB PO ONE (07:55)
[2022-05-05] MEDS: Mometasone 220 MCG MDI INH SCH (08:04)
[2022-05-05] MEDS ORDERED: Propofol 10 MG/ML 20 ML BTL ONE (08:36)
[2022-05-05] MEDS ORDERED: Ondansetron 4 mg VIAL 2 MG/ML 2 ml VIAL ONE (08:36)
[2022-05-05] MEDS ORDERED: fentaNYL 100 mcg/2 ml 50 MCG/ML VIAL ONE (08:36)
[2022-05-05] MEDS ORDERED: Lidocaine 2% PF 5 ML VIAL ONE (08:36)
[2022-05-05] MEDS ORDERED: Midazolam 2 mg/2 ml VIAL 1 mg/ml 2 ml VIAL (2 mg) ONE (08:36)
[2022-05-05] MEDS ORDERED: Naloxone 0.4 mg VIAL 0.4 mg/ml 1 ml VIAL IV PRN (09:29)
[2022-05-05] MEDS ORDERED: fentaNYL 100 mcg/2 ml 50 MCG/ML VIAL IV PRN (09:29)
[2022-05-05] MEDS ORDERED: HYDROcodone/ACETAMIN 5/325 mg TAB PO PRN (09:29)
[2022-05-05] MEDS ORDERED: oxyCODONE/Acetamin 5/325 mg TAB PO PRN (09:29)
[2022-05-05] MEDS ORDERED: Bupivacaine 0.5% 50 ML MDV VIAL ONE (09:44)
[2022-05-05] MEDS ORDERED: Acetaminophen IV 1 GM/100ML 1,000 MG/100 ML BAG IV ONE (09:46)
[2022-05-05] MEDS ORDERED: Vancomycin Trough Check NOTE FOLLOW UP ONE (10:30)
[2022-05-05] MEDS ORDERED: Ketamine HCL 50 mg/ml 10 ml VIAL (500 MG) ONE (11:24)
[2022-05-05] MEDS: Cefepime 2 GM in Dextrose 2 GM/50 ML BAG IV SCH ×2 (12:17→21:05)
[2022-05-05] MEDS: Vancomycin 1000 MG in NS 0.9% 250 ML IVPB SCH ×2 (12:21→23:09)
[2022-05-05] MEDS: Aspirin EC 81 mg TAB.EC (enteric coated) PO SCH (15:08)
[2022-05-05] MEDS: Latanoprost 0.005% 2.5 ml BTL BOTH EYES SCH (21:10)
[2022-05-06] MEDS: metroNIDAZOLE IV 500 MG/100ML 500 MG/100 ML BAG IVPB SCH ×2 (05:22→14:53)
[2022-05-06 07:00] LABS: Hematocrit 30 % (35-47); Hemoglobin 9.8 g/dL (12.0-16.0); Mean Platelet Volume 7.5 fL (7.4-10.4); Platelet Count 239 10^3/uL (150-450)
[2022-05-06 07:21] LABS: C Reactive Protein 16.33 mg/L (<8.01); Calcium 8.7 mg/dL (8.6-10.3); Creatinine, Serum 1.07 mg/dL (0.51-0.95); Potassium 3.6 mmol/L (3.5-5.0)
[2022-05-06] MEDS: Mometasone 220 MCG MDI INH SCH (08:38)
[2022-05-06] MEDS ORDERED: Vancomycin Trough Check NOTE FOLLOW UP ONE (10:30)
[2022-05-06] MEDS: Cefepime 2 GM in Dextrose 2 GM/50 ML BAG IV SCH (10:38)
[2022-05-06] MEDS: Aspirin EC 81 mg TAB.EC (enteric coated) PO SCH (10:40)
[2022-05-06 11:19] LABS: Vancomycin Trough 23.5 mcg/mL; eGFR CKD-EPI 62.9 (>60)
[2022-05-06] MEDS ORDERED: Enoxaparin 40 MG/0.4 ML SYR SUBCUT SCH (12:00)
[2022-05-06 12:03] LABS: Rapid COVID-19 Molecular Undetected (Undetected)
[2022-05-06] MEDS: Vancomycin 1000 MG in NS 0.9% 250 ML IVPB SCH (12:17)
[2022-05-06 14:41] VITALS: BP 97/64
[2022-05-07] MEDS ORDERED: Vancomycin Random Level NOTE FOLLOW UP ONE (06:00)
== END 2022-05-06 16:40 | disposition home or self-care (01) | DRG 854 ==
LOC: ED 12:17 → EDHOLD 20:56 → SUATTDRO 20:56 → MED 05-02 10:24
PROVIDERS: ADMIT Student in an Organized Health Care Education/Training Program; ATTEND Internal Medicine

== ENCOUNTER 2022-11-20 09:26 | Inpatient (IN) ==
[2022-11-20] MEDS ORDERED: Vancomycin 1,250 MG in NS 0.9% 250 ml 250 ML IVPB ONE (10:26)
[2022-11-20] MEDS ORDERED: Cholestyramine Resin 4 GM POWDER PO ONE (18:29)
[2022-11-20] MEDS ORDERED: Insulin ISOPH/REG 70/30 SUBCUT ONE (20:00)
[2022-11-20] MEDS ORDERED: HYDROcodone/ACETAMIN 5/325 mg TAB PO ONE (20:00)
[2022-11-20] MEDS ORDERED: Pravastatin 40 mg TAB (NF) PO ONE (21:00)
[2022-11-20] MEDS ORDERED: Pravastatin 20 mg TAB (NF) PO ONE (22:00)
[2022-11-21] MEDS ORDERED: Vancomycin 1,250 MG in NS 0.9% 250 ml 250 ML IVPB ONE (17:03)
[2022-11-21] MEDS ORDERED: Vancomycin per Pharmacy 1 EA NOTE FOLLOW UP PRN (17:04)
[2022-11-21] MEDS ORDERED: Vancomycin 1,250 MG in NS 0.9% 250 ml 250 ML IVPB SCH (18:00)
[2022-11-21] MEDS ORDERED: Albuterol HFA INHALER 8 gm MDI INH PRN (21:25)
[2022-11-21] MEDS ORDERED: HYDROcodone/ACETAMIN 5/325 mg TAB PO PRN (21:25)
[2022-11-21] MEDS ORDERED: Albuterol/Ipratropium NEB.SOL (2.5/0.5 MG) 3 ML NEB.SOLN INH PRN (21:25)
[2022-11-22] MEDS ORDERED: Vancomycin Random Level NOTE FOLLOW UP ONE (06:00)
[2022-11-22] MEDS ORDERED: Influenza vaccine *QUAD* *2023-24* 0.5 ML SYRINGE IM ONE (09:00)
[2022-11-22] MEDS: Vancomycin 1,250 MG in NS 0.9% 250 ml 250 ML IVPB SCH (09:52)
[2022-11-22] MEDS: Cholecalciferol (VIT D3) 1,000 unit TAB PO SCH (09:56)
[2022-11-22] MEDS: Aspirin EC 81 mg TAB.EC (enteric coated) PO SCH (09:57)
[2022-11-22] MEDS: Empagliflozin 25 MG TAB PO SCH (09:59)
[2022-11-22] MEDS: Insulin ISOPH/REG 70/30 SUBCUT SCH ×2 (11:21→21:58)
[2022-11-22] MEDS: Dorzolamide/Timolol OPTH (NF) 10 ML BOT BOTH EYES SCH ×2 (11:21→21:57)
[2022-11-22] MEDS: Latanoprost 0.005% 2.5 ml BTL BOTH EYES SCH (21:59)
[2022-11-23] MEDS: Aspirin EC 81 mg TAB.EC (enteric coated) PO SCH (09:42)
[2022-11-23] MEDS: Empagliflozin 25 MG TAB PO SCH (09:43)
[2022-11-23] MEDS: Cholecalciferol (VIT D3) 1,000 unit TAB PO SCH (09:44)
[2022-11-23] MEDS ORDERED: Dextrose 50% Syringe 50 ml 25 GM/50 ML SYRINGE IV PUSH PRN (09:47)
[2022-11-23] MEDS: Dorzolamide/Timolol OPTH (NF) 10 ML BOT BOTH EYES SCH ×2 (09:49→20:12)
[2022-11-23] MEDS: Vancomycin 1,250 MG in NS 0.9% 250 ml 250 ML IVPB SCH (09:55)
[2022-11-23] MEDS: Insulin ISOPH/REG 70/30 SUBCUT SCH (19:30)
[2022-11-23] MEDS: Latanoprost 0.005% 2.5 ml BTL BOTH EYES SCH (20:15)
[2022-11-24] MEDS ORDERED: Vancomycin Trough Check NOTE FOLLOW UP ONE (08:30)
[2022-11-24] MEDS: Cholecalciferol (VIT D3) 1,000 unit TAB PO SCH (10:47)
[2022-11-24] MEDS: Aspirin EC 81 mg TAB.EC (enteric coated) PO SCH (10:48)
[2022-11-24] MEDS: Empagliflozin 25 MG TAB PO SCH (10:50)
[2022-11-24] MEDS: Dorzolamide/Timolol OPTH (NF) 10 ML BOT BOTH EYES SCH ×2 (10:51→21:23)
[2022-11-24] MEDS: Vancomycin 1,250 MG in NS 0.9% 250 ml 250 ML IVPB SCH (12:48)
[2022-11-24] MEDS: Latanoprost 0.005% 2.5 ml BTL BOTH EYES SCH (21:23)
[2022-11-25 06:04] VITALS: BP 126/68
[2022-11-25] MEDS: Cholecalciferol (VIT D3) 1,000 unit TAB PO SCH (08:56)
[2022-11-25] MEDS ORDERED: Vancomycin 1,750 MG in NS 0.9% 500 ml BAG 500 ML IVPB SCH (09:00)
[2022-11-25] MEDS: Aspirin EC 81 mg TAB.EC (enteric coated) PO SCH (09:01)
[2022-11-25] MEDS: Empagliflozin 25 MG TAB PO SCH (09:02)
[2022-11-25] MEDS: Dorzolamide/Timolol OPTH (NF) 10 ML BOT BOTH EYES SCH (09:03)
[2022-11-27] MEDS ORDERED: Vancomycin Trough Check NOTE FOLLOW UP ONE (08:30)
== END 2022-11-25 10:10 | disposition home or self-care (01) | DRG 540 ==
LOC: ED 09:26 → EDHOLD 11-21 18:19 → SUATTDRO 11-21 18:19 → EDHOLD 11-21 23:12 → MED 11-21 23:55
PROVIDERS: ADMIT Internal Medicine; ATTEND Internal Medicine

== ENCOUNTER 2023-02-25 10:33 | Observation (INO) ==
[2023-02-25 11:26] LABS: ABS Basophils 0.1 10^3/uL (0.0-0.1); ABS Eosinophils 0.3 10^3/uL (0.0-0.5); ABS Lymphocytes 2.5 10^3/uL (1.0-4.8); ABS Monocytes 0.5 10^3/uL (0.0-0.9); ABS Neutrophils 5.2 10^3/uL (1.5-7.6); ABS Nucleated RBC 0.01 10^3/ul; Eosinophil % 3.3 %; Hematocrit 34.3 % (35-45); Hemoglobin 11.2 g/dL (11.5-14.3); Lymphocyte % 29.1 %; Mean Corpuscular Hemoglobin 28.6 pg (27-33); Mean Corpuscular Hgb Conc 32.8 g/dL (31-36); Mean Corpuscular Volume 87.3 fL (80-97); Mean Platelet Volume 7.4 fL (7.5-11.2); Nucleated Red Blood Cells % 0.1 %/100WBC (0.0-0.8); Platelet Count 318 10^3/uL (150-450); Red Blood Count 3.92 10^6/uL (3.63-4.92); Red Cell Distribution Width 16.8 % (12-17); White Blood Count 8.6 10^3/uL (3.8-11.8)
[2023-02-25 11:52] LABS: Albumin/Globulin Ratio 1.1 (1-3); C Reactive Protein 2.7 mg/L (<8.01); Calcium 9.4 mg/dL (8.6-10.3); Creatinine, Serum 0.9 mg/dL (0.51-0.95); Globulin 3.8 g/dL (2-4); Magnesium 2.1 mg/dL (1.9-2.7); Potassium 4.2 mmol/L (3.5-5.0); Total Bilirubin 0.2 mg/dL (0.2-1.0); Total Protein 7.8 g/dL (6.4-8.9); eGFR CKD-EPI 70.9 (>60)
[2023-02-25] MEDS ORDERED: Gadoteridol (CONTRAST) 279.3 MG/ML 10 ML IV ONE (15:47)
[2023-02-25] MEDS ORDERED: cefTRIAXone 1 gm/50 mL D5W 1 GM/50 ML BAG IV SCH (18:00)
[2023-02-25] MEDS ORDERED: Vancomycin 1,500 MG in NS 0.9% 250 ml 250 ML IVPB ONE (18:00)
[2023-02-25] MEDS ORDERED: Dextrose 50% Syringe 50 ml 25 GM/50 ML SYRINGE IV PUSH PRN (18:49)
[2023-02-25] MEDS ORDERED: Albuterol HFA INHALER 8 gm MDI INH PRN (19:42)
[2023-02-25] MEDS ORDERED: Enoxaparin 100 MG/ML SYR SUBCUT ONE (19:46)
[2023-02-25] MEDS ORDERED: HYDROcodone/ACETAMIN 5/325 mg TAB PO PRN (19:54)
[2023-02-26] MEDS: Nystatin TOP POWDER 15 GM BTL TOPICAL SCH ×2 (05:34→09:22)
[2023-02-26] MEDS ORDERED: Latanoprost 0.005% 2.5 ml BTL BOTH EYES SCH (09:00)
[2023-02-26] MEDS ORDERED: Aspirin EC 81 mg TAB.EC (enteric coated) PO SCH (09:00)
[2023-02-26] MEDS ORDERED: Cholestyramine Resin 4 GM POWDER PO SCH (09:00)
[2023-02-26] MEDS ORDERED: Empagliflozin 25 MG TAB PO SCH (09:00)
[2023-02-26 09:24] VITALS: BP 122/73
== END 2023-02-26 13:40 | disposition home or self-care (01) ==
LOC: ED 10:33 → EDHOLD 10:33 → SUATTDRO 18:30 → MED 20:55
PROVIDERS: ADMIT Internal Medicine; ATTEND Hospitalist